=== PATIENT | female | born 1960 | race Caucasian/White ===

== ENCOUNTER 2020-02-12 17:09 | Outpatient (CLI) | payer MEDICARE, MEDICAID, SELFPAY ==
[2020-02-12 17:59] LABS: Hemoglobin A1C 5.9 % (<5.7)
[2020-02-12 18:26] LABS: Thyroid Stimulating Hormone 0.287 uIU/mL (0.465-4.680)
[2020-02-12 18:32] LABS: Free T4 Free Thyroxine 1.04 ng/mL (0.78-2.19)
== END 2020-02-12 17:10 | disposition home or self-care (01) ==
PROVIDERS: PCP Family Medicine; Visit Provider Internal Medicine Endocrinology, Diabetes & Metabolism
DX: E03.9 Hypothyroidism, unspecified (principal); E11.65 Type 2 diabetes mellitus with hyperglycemia; R73.03 Prediabetes; R79.89 Other specified abnormal findings of blood chemistry
CPT/HCPCS: 36415; 83036; 84439; 84443

== ENCOUNTER 2020-02-23 11:47 | Outpatient (CLI) | payer MEDICARE, MEDICAID, SELFPAY ==
--- NOTE | ~2020-02-23 | MMUS_ITS ---
EXAMINATION: MM diagnostic mary BI w oc, US breast LT limited HISTORY: Tenderness in the upper outer quadrant of the left breast TECHNIQUE: Craniocaudal, mediolateral, and mediolateral oblique 3-D tomosynthesis images of the galilea ts were performed and synthetic 2-D images were generated. CAD analysis was submitted and interpreted . High resolution limited left breast ultrasound was performed. COMPARISON: 04/25/2019, 11/18/2017 BREAST PARENCHYMAL COMPOSITION: There are scattered areas of fibroglandular density. FINDINGS: MAMMOGRAPHIC FINDINGS: There is no evidence of suspicious mass, calcification, or architectural distortion to suggest yola hutchinson. There has been no suspicious interval change. No mammographic correlate is identified for the patient's reported left breast pain ULTRASOUND: There is no evidence of focal abnormal solid or cystic lesion in the vicinity of the patient's report ed left breast pain. Areas of dense fibroglandular tissue are noted. IMPRESSION: 1. No specific mammographic or sonographic correlate is identified for the patient's reported left br east pain Further evaluation at this time should be based on clinical assessment. Continued follow-up physical examination is recommended. 2. Recommend routine screening mammography in one year. BI-RADS Category 1: Negative Reviewed, dictated and finalized at location A. IMPRESSION: 1. No specific mammographic or sonographic correlate is identified for the katja ent's reported left breast pain Further evaluation at this time should be based on clinical assessment. Continued follow-up physical examination is recommende d. 2. Recommend routine screening mammography in one year. BI-RADS Category 1: Negative
== END 2020-02-23 11:48 | disposition home or self-care (01) ==
LOC: ANHIMG 11:56
PROVIDERS: PCP Family Medicine; Visit Provider Obstetrics & Gynecology Gynecology
DX: R92.8 Other abnormal and inconclusive findings on diagnostic imaging of breast (principal)
CPT/HCPCS: 76642; 77062; 77066; G0279

== ENCOUNTER 2020-05-10 16:38 | Outpatient (CLI) | payer MEDICARE, MEDICAID, SELFPAY ==
[2020-05-10 18:46] LABS: Free T4 Free Thyroxine 0.88 ng/mL (0.78-2.19)
[2020-05-16 05:24] LABS: Triiodothyronine T3 Free 2.2 pg/mL (2.3-4.2)
== END 2020-05-10 16:39 | disposition home or self-care (01) ==
LOC: ANHLAB 16:45
PROVIDERS: PCP Family Medicine; Visit Provider Internal Medicine Endocrinology, Diabetes & Metabolism
DX: E03.9 Hypothyroidism, unspecified (principal); E11.9 Type 2 diabetes mellitus without complications; E04.9 Nontoxic goiter, unspecified
CPT/HCPCS: 36415; 84439; 84443; 84481

== ENCOUNTER 2020-05-22 06:52 | Outpatient (NON) | payer MEDICARE, MEDICAID, SELFPAY ==
[2020-05-22 23:09] LABS: SARS-CoV-2 RNA PCR Negative
== END 2020-05-22 06:53 ==
PROVIDERS: PCP Family Medicine; Visit Provider Family Medicine
DX: Z20.828 Contact with and (suspected) exposure to other viral communicable diseases (principal); R05 Cough
CPT/HCPCS: 87635; C9803; U0003

== ENCOUNTER 2020-10-06 16:45 | Emergency (ER) | payer MEDICARE, MEDICAID, SELFPAY ==
--- NOTE | ~2020-10-06 | XR_ITS ---
EXAMINATION: XR abdomen obstructive series EXAM DATE: 10/06/2020 17:57 INDICATION: Abdominal pain, constipation. Symptoms for days. TECHNIQUE: Frontal upright projection of the upper abdomen, frontal projection of the lower abdomen f or interpretation. There is no prior study for comparison. FINDINGS: There is moderate amount of colonic stool and gas. No small bowel dilation, nonobstructiv e bowel gas pattern. Calcifications in the pelvis are believed to be phleboliths. There is no orga nomegaly suspected. The bones are unremarkable. There is no free intraperitoneal air. The lung b ases are clear. IMPRESSION: Moderate amount of colonic stool. Reviewed, dictated and finalized at location A. 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
[2020-10-06 16:50] VITALS: BP 179/109; PULSE 116; RESP 18; TEMP 36.6; O2SAT 98
--- NOTE | 2020-10-06 17:17 | ED.ABDPAIN ---
HPI - Abdominal Pain General Chief Complaint: Abdominal Pain Stated Complaint: constipation, severe pain Time Seen by Provider: 10/06/20 17:03 Source: patient Mode of arrival: ambulatory Limitations: no limitations History of Present Illness HPI narrative: A 60-year-old female [facility] with complaints of constipation and anxiety. Patient has an underlying issue with anxiety. States she was recently started on Celexa, took it for approximately 30 days but discontinued it because of side effects. Patient notes most notably right now she has been constipated and unable to have a bowel movement for approximately 4 days. Patient complains of severe pain in her rectum and states that she has tried to go with no success. Related Data Home Medications Medication Instructions Recorded Confirmed cholecalciferol (vitamin D3) 50 2,000 unit PO DAILY 11/09/19 11/09/19 mcg (2,000 unit) tablet duloxetine 60 mg capsule,delayed 60 mg PO DAILY 11/09/19 11/09/19 release multivitamin 1 tablet PO DAILY 11/09/19 11/09/19 magnesium 200 mg tablet 200 mg PO DAILY 02/15/20 turmeric 400 mg capsule mg PO 02/15/20 Allergies Allergy/AdvReac Type Severity Reaction Status Date / Time No Known Allergies Allergy Unverified 10/06/20 16:53 Review of Systems Review of Systems: Narrative: CONSTITUTIONAL: Denies fever, chills, or sweats. EYES: Denies visual changes, redness, or discharge. ENT: Denies rhinorrhea, congestion, sore throat, or otalgia. CARDIOVASCULAR: Denies chest pain, palpitations, or edema. RESPIRATORY: Denies cough or dyspnea. GASTROINTESTINAL: Denies abdominal pain, nausea, vomiting, or diarrhea. Endorses constipation GENITOURINARY: Denies dysuria or hematuria. SKIN: Denies rash or itching. MUSCULOSKELETAL: Denies back pain, joint pain, or myalgia. NEUROLOGIC: Denies headache, numbness, dizziness, or weakness. PSYCHIATRIC: Denies anxiety or depression. [facility] Past Medical History Medical History (Updated 10/06/20 @ 18:43 by Kobe Casanova DO) Anxiety Depression Osteoporosis Thyroid disease Family History Family History Father Diabetes mellitus Depression Malignant neoplasm of prostate Acute myocardial infarction Family history of ulcerative colitis Mother Family history of pancreatic cancer Other Family history of chronic obstructive pulmonary disease Family history of gastrointestinal disorder Family history of primary malignant neoplasm of liver Social History Social History Smoking status: Never smoker Alcohol intake: current Gender identity (if verbalized by the patient): Female Exam Narrative: Exam Narrative: GENERAL: Well-appearing, well-nourished, who appears tearful and anxious. HEAD: Normocephalic, atraumatic. EYES: PERRLA and EOMI. ENT: Nares clear, no rhinorrhea or epistaxis. Mucous membranes moist. NECK: Supple. No adenopathy or masses. No carotid bruits or JVD CHEST: Clear to auscultation. No respiratory distress. No wheezes rales or rhonchi HEART: Regular rate and rhythm. No murmur heard. Normal peripheral pulses. ABDOMEN: Soft, nontender, nondistended, normal active bowel sounds. EXTREMITIES: Normal range of motion. No edema. SKIN: Warm, dry, no rash. NEURO: No focal deficits. Alert and oriented x3. PSYCH: Tearful and anxious. Course Reevaluation(s) Reevaluation #1: Patient unfortunately did not tolerate the enema very well. This did however as she put it get things moving . Patient was able to have a bowel movement in the room that was small. She later went to the bathroom and had another bowel movement. Patient will be discharged home with a prescription for cathartics to continue taking to alleviate the issue. Time: 18:39 Vital Signs Vital signs: Vital Signs Temperature 36.6 C 10/06/20 16:50 Pulse Rate 116 H
[2020-10-06] MEDS: LORazepam INJ (*CRX) 2 MG/ML VIAL 1 MG IV PUSH (17:33)
[2020-10-06] MEDS: MAGNESIUM CITRATE 300 ML BTL PO (17:34)
[2020-10-06 17:40] LABS: Basophils Percent Auto 0.2 % (0.2-1.2); Eosinophils Percent Auto 0.1 % (0-4.4); Hemoglobin 14.1 g/dL (12.0-15.0); Immature Granulocyte Absolute 0.04 K/mm3 (0.00-0.031); Immature Granulocyte Percent A 0.3 % (0-0.5); Lymphocytes Absolute Auto 1.15 K/mm3 (0.9-3.2); Lymphocytes Percent Auto 9.6 % (18.3-44.2); Mean Corpuscular HGB Conc 33.6 g/dl (32-36); Mean Corpuscular Hemoglobin 29.7 pg (26-34); Mean Corpuscular Volume 88.4 fl (80-100); Mean Platelet Volume 11.3 fl (7.4-10.4); Monocytes Absolute Auto 0.6 K/mm3 (0.1-0.6); Neutrophils Absolute Auto 10.2 K/mm3 (1.3-6.7); Neutrophils Percent Auto 84.8 % (45.5-73.1); Platelet Count Result 205 k/mm3 (150-375); Red Blood Count 4.75 M/mm3 (4.2-5.4)
[2020-10-06 17:53] LABS: Anion Gap 6 mmol/L (8-16); Blood Urea Nitrogen 16 mg/dL (7-17); Calcium 9.3 mg/dL (8.4-10.2); Carbon Dioxide 28 mmol/L (22-30); Chloride 102 mmol/L (98-107); Estimated CRCL calculation 62 ml/min; Estimated Glomerular Filt Rate > 60; Glucose 120 mg/dL (65-105); Potassium 3.7 mmol/L (3.4-5.0); Sodium 136 mmol/L (137-145)
[2020-10-06 18:55] VITALS: BP 156/100; PULSE 85; RESP 18; O2SAT 99
--- NOTE | 2020-10-06 18:55 | PC.NURSE ---
lg bowel movement after mag citrate and soap suds enema. abd discomfort improved. anxiety continues.
== END 2020-10-06 19:07 | disposition home or self-care (01) ==
PROVIDERS: Emergency Provider Emergency Medicine; PCP Family Medicine
DX: K59.01 Slow transit constipation (principal); F41.9 Anxiety disorder, unspecified; F32.9 Major depressive disorder, single episode, unspecified; M81.0 Age-related osteoporosis without current pathological fracture; E07.9 Disorder of thyroid, unspecified
CPT/HCPCS: 36415; 74019; 80048; 85025; 96374; 99284; A9270; J2060

== ENCOUNTER 2020-10-29 14:22 | Emergency (ER) | payer MEDICARE, MEDICAID, SELFPAY ==
--- NOTE | ~2020-10-29 | XR_ITS ---
EXAMINATION: XR chest 2V EXAM DATE: 10/29/2020 15:23 INDICATION: Cough. TECHNIQUE: Frontal and lateral projections of the chest obtained and reviewed. Comparison is made to prior examination from 11/03/2017. FINDINGS: The lungs are clear. There are no pleural effusions. The cardiomediastinal silhouette is within normal limits. There is no pneumothorax suspected. The bones and soft tissues are unremarkab le. IMPRESSION: Normal chest x-ray exam. Reviewed, dictated and finalized at location A. IMPRESSION: Normal chest x-ray exam.
[2020-10-29 14:24] VITALS: PULSE 78; RESP 16; TEMP 36.3; O2SAT 99
--- NOTE | 2020-10-29 14:27 | ECG_ITS ---
Measurements Intervals [place] Rate: 78 P: 58 ID: 150 QRS: 65 QRSD: 94 T: 57 QT: 381 QTc: 435 Interpretive Statements SINUS RHYTHM POSSIBLE LEFT ATRIAL ENLARGEMENT BASELINE ARTIFACT- I, II, III, AVR, AVL, AVF, V3 BORDERLINE ECG Electronically Signed On 10-29-2020 16:38:06 CDT by Paul Diego D.O.
[2020-10-29 14:43] LABS: Basophils Percent Auto 0.3 % (0.2-1.2); Eosinophils Percent Auto 0.3 % (0-4.4); Hematocrit 43.9 % (37.0-47.0); Hemoglobin 14.8 g/dL (12.0-15.0); Immature Granulocyte Absolute 0.03 K/mm3 (0.00-0.031); Immature Granulocyte Percent A 0.4 % (0-0.5); Lymphocytes Absolute Auto 1.26 K/mm3 (0.9-3.2); Mean Corpuscular HGB Conc 33.7 g/dl (32-36); Mean Corpuscular Hemoglobin 30.6 pg (26-34); Mean Corpuscular Volume 90.9 fl (80-100); Mean Platelet Volume 10.8 fl (7.4-10.4); Monocytes Absolute Auto 0.4 K/mm3 (0.1-0.6); Monocytes Percent Auto 5.6 % (2.6-8.5); Neutrophils Absolute Auto 6.1 K/mm3 (1.3-6.7); Neutrophils Percent Auto 77.4 % (45.5-73.1); Platelet Count Result 217 k/mm3 (150-375); Red Blood Count 4.83 M/mm3 (4.2-5.4); White Blood Count 7.9 K/mm3 (4.5-10.0)
[2020-10-29 15:19] LABS: Add Urine Microscopic? YES; Appearance Urine Cloudy (Clear); Bacteria Urine Trace /hpf; Bilirubin Urine Negative (Negative); Blood Urine Negative (Negative); Calcium Oxalate Crystals Urine Many /hpf; Color Urine Amber (Yellow); Glucose Urine UA Negative (Negative); Ketones Urine Negative (Negative); Leukocyte Esterase Ur Negative LEU/UL (Negative); Mucus Urine Heavy /lpf; Nitrate Urine Negative (Negative); Protein Urine 1+ mg/dL (Negative); Specific Grav Ur 1.025 (1.001-1.035); Squamous Epithelial Cell Urine Many /hpf (Few); Urobilinogen Urine Negative mg/dL (<2.0); WBC Urine 0-3 /hpf
[2020-10-29 16:04] LABS: Alanine Aminotransferase 22 U/L (4-35); Albumin Level 4.6 g/dL (3.5-5.1); Alkaline Phosphatase 43 U/L (38-126); Anion Gap 9 mmol/L (8-16); Aspartate Amino Transferase 27 U/L (14-36); Bilirubin,Total 0.4 mg/dL (0.2-1.3); Blood Urea Nitrogen 17 mg/dL (7-17); Calcium 9.6 mg/dL (8.4-10.2); Carbon Dioxide 27 mmol/L (22-30); Chloride 103 mmol/L (98-107); Estimated CRCL calculation 56 ml/min; Estimated Glomerular Filt Rate 57; Glucose 121 mg/dL (65-105); Sodium 139 mmol/L (137-145)
--- NOTE | 2020-10-29 17:04 | ED.GENADULT ---
HPI - General Adult General Chief complaint: Weakness Stated complaint: fatigue, nausea, dizziness Time Seen by Provider: 10/29/20 16:18 Source: patient Mode of arrival: ambulatory Limitations: no limitations History of Present Illness HPI narrative: 60-year-old with a history of depression, hypothyroidism here with complaints of marked weakness for last several weeks. She states that she has no energy, her sleep is also disturbed she sleeps only for few hours a day, she states that she has occasional heartburn. She denies any fever or chills. She states that food makes her nauseated. Patient states that she was supposed to be on Cymbalta 60 mg but she only takes 20 mg a day. Patient states that none of the antidepressants are working on her. She denies being suicidal or homicidal. Onset (ago): month(s) Radiation: non-radiation Severity: moderate Treatments prior to arrival: none Related Data Home Medications Medication Instructions Recorded Confirmed cholecalciferol (vitamin D3) 50 2,000 unit PO DAILY 11/09/19 11/09/19 mcg (2,000 unit) tablet duloxetine 60 mg capsule,delayed 60 mg PO DAILY 11/09/19 11/09/19 release multivitamin 1 tablet PO DAILY 11/09/19 11/09/19 magnesium 200 mg tablet 200 mg PO DAILY 02/15/20 turmeric 400 mg capsule mg PO 02/15/20 Allergies Allergy/AdvReac Type Severity Reaction Status Date / Time No Known Allergies Allergy Verified 10/29/20 16:28 Review of Systems Review of Systems: All systems reviewed & are unremarkable except as noted in HPI and below Constitutional: Constitutional: Reports difficulty sleeping, Reports fatigue, Reports lethargy and Reports poor appetite Eyes: Eyes: Reports no additional eye complaints ENT: Reports system reviewed and no additional complaints, except as documented Cardiovascular: Cardiovascular: Reports chest pain Respiratory: Respiratory: Reports no additional respiratory complaints Gastrointestinal: Gastrointestinal: Reports abdominal pain Musculoskeletal: Musculoskeletal: Reports no additional musculoskeletal complaints Neurologic: Reports system reviewed and no additional complaints, except as documented Psychiatric: Psychiatric: Reports abnormal sleep pattern, Reports change in appetite and Reports depression Endocrine: Endocrine: Reports no additional endocrine complaints PMFSH Past Medical History Medical History Anxiety Depression Osteoporosis Thyroid disease Family History Family History Father Diabetes mellitus Depression Malignant neoplasm of prostate Acute myocardial infarction Family history of ulcerative colitis Mother Family history of pancreatic cancer Other Family history of chronic obstructive pulmonary disease Family history of gastrointestinal disorder Family history of primary malignant neoplasm of liver Social History Social History Smoking status: Never smoker Alcohol intake: current Gender identity (if verbalized by the patient): Female Exam Narrative: Exam Narrative: GENERAL: Well-appearing, well-nourished, and in no acute distress. HEAD: Normocephalic, atraumatic. EYES: PERRLA and EOMI ,tearful. NECK: Supple. CHEST: Clear to auscultation. No respiratory distress. HEART: Regular rate and rhythm. No murmur heard. Normal peripheral pulses. ABDOMEN: Soft, nontender, nondistended, normal active bowel sounds. EXTREMITIES: Normal range of motion. No edema. SKIN: Warm, dry, no rash. NEURO: No focal deficits. Alert and oriented x3. PSYCH: Depressed mood , Course Course Emergency Course: Patient was supposed to be on antidepressant patient states that she has not taken medications regularly she states that she was put on Cymbalta 60 mg however she she states that she is trying to taper her own medications of she thinks one of
[2020-10-29 18:09] LABS: Potassium 3.9 mmol/L (3.4-5.0)
== END 2020-10-29 17:39 | disposition home or self-care (01) ==
LOC: ANHED 17:10
PROVIDERS: Emergency Medicine; Emergency Provider Family Medicine; PCP Family Medicine
DX: R53.1 Weakness (principal); F34.1 Dysthymic disorder; E03.9 Hypothyroidism, unspecified; M81.0 Age-related osteoporosis without current pathological fracture; E07.9 Disorder of thyroid, unspecified; F41.9 Anxiety disorder, unspecified; F32.9 Major depressive disorder, single episode, unspecified; R94.31 Abnormal electrocardiogram [ECG] [EKG]
CPT/HCPCS: 36415; 71046; 80053; 81001; 85025; 93005; 99283

== ENCOUNTER 2020-12-02 12:59 | Outpatient (CLI) | payer MEDICARE, MEDICAID, SELFPAY ==
--- NOTE | ~2020-12-02 | CT_ITS ---
EXAMINATION: CT abdomen wo/w con DATE: 12/02/2020 13:47 INDICATION: Adrenal gland disorder. Abnormal cortisol. TECHNIQUE: Computed tomography (CT) of the abdomen was performed without and with 100 mL Omnipaque 35 0 intravenous contrast. Automated exposure control and iterative reconstruction technique were employ ed. The dose-length product was 643.08 mGy-cm. COMPARISON: None. FINDINGS: The visualized portions of the lung bases demonstrate minimal atelectasis. No pleural effus ion. The heart size is normal. No pericardial effusion. The liver, gallbladder, spleen, pancreas, adr enal glands, and right kidney are normal. There is an 8 mm cyst in left kidney. There are no dilated loops of bowel. There are no pathologically enlarged lymph nodes. There is no free intraperitoneal fl uid. There is severe lower lumbar spondylosis. There is a benign bone island in T12. IMPRESSION: 1. Normal adrenal glands. Reviewed, dictated and finalized at location B. IMPRESSION: 1. Normal adrenal glands.
[2020-12-02 13:37] LABS: Estimated Glomerular Filt Rate 51
== END 2020-12-02 13:00 | disposition home or self-care (01) ==
PROVIDERS: PCP Family Medicine; Visit Provider Internal Medicine Endocrinology, Diabetes & Metabolism
DX: E27.9 Disorder of adrenal gland, unspecified (principal); M47.816 Spondylosis without myelopathy or radiculopathy, lumbar region
CPT/HCPCS: 74170; Q9967

== ENCOUNTER 2020-12-23 16:35 | Outpatient (CLI) | payer MEDICARE, MEDICAID, SELFPAY ==
--- NOTE | ~2020-12-23 | MR_ITS ---
EXAMINATION: MR pituitary wo/w con EXAM DATE: 12/23/2020 18:10 INDICATION: Pituitary Function Test Abnormal, High Cortisol. TECHNIQUE: Magnetic resonance imaging (MRI) of the brain/brain stem obtained without contrast. Sagit ted T1, axial diffusion, gradient echo (T2*), T1, T2, FLAIR sequences obtained. Patient was then inj ected with intravenous Multihance contrast. Quantity of contrast not available at this time, an adden dum can be added. A pituitary protocol was utilized including dynamic imaging through the pituitary g land during intravenous injection of contrast. Whole brain postcontrast axial and coronal sequences. Correlation was made with head CT 10/27/2018. FINDINGS: The pituitary gland is mildly bulging in the cephalad direction out of the sella turcica, measures 7 millimeters in craniocaudal dimension versus about [address] 2019. Still does not to uch the optic chiasm. There is 3.5 mm region identified on the sagittal postcontrast sequence which e nhances less than the other portions of the pituitary gland, could be a pituitary microadenoma. This has been indicated on sequence 9 image 13. There are no areas of restricted diffusion to suggest acute infarction. There is no acute hemorrhage seen on the T2*, a hemosiderin sensitive sequence. No intraparenchymal brain mass. The ventricles a re normal in size. There are no extra-axial collections. Flow voids are seen in the cerebral arteri es on the T2-weighted sequences consistent with their expected patency. The orbits are unremarkable. Soft tissue is unremarkable. IMPRESSION: Mild interval increase in volume of the pituitary gland with possible identification of 3 .5 mm. microadenoma. Reviewed, dictated and finalized at location A. IMPRESSION: Mild interval increase in volume of the pituitary gland with possib le identification of 3.5 mm. microadenoma.
== END 2020-12-23 16:36 | disposition home or self-care (01) ==
PROVIDERS: PCP Family Medicine; Visit Provider Internal Medicine Endocrinology, Diabetes & Metabolism
DX: R94.7 Abnormal results of other endocrine function studies (principal)
CPT/HCPCS: 70553; A9577

== ENCOUNTER 2021-03-03 14:15 | Outpatient (NON) | payer MEDICARE, MEDICAID, SELFPAY ==
[2021-03-06 18:31] LABS: Calculated Total (E+NE) 35 mcg/24 h (26-121); Dopamine, 24hr Urine 222 mcg/24 h (52-480); Epinephrine, 24hr Urine 7 mcg/24 h (2-24); Norepinephrine, 24hr Urine 28 mcg/24 h (15-100)
[2021-03-07 12:38] LABS: Metanephrine, Total Urine 365 mcg/24 h (224-832); Metanephrine, Urine 99 mcg/24 h (90-315); Normetanephrine, Urine 266 mcg/24 h (122-676)
== END 2021-03-03 14:16 | disposition home or self-care (01) ==
PROVIDERS: PCP Family Medicine; Visit Provider Internal Medicine Endocrinology, Diabetes & Metabolism
DX: D35.2 Benign neoplasm of pituitary gland (principal); F41.9 Anxiety disorder, unspecified; I10 Essential (primary) hypertension
CPT/HCPCS: 36415; 82175; 82384; 83655; 83825; 83835

== ENCOUNTER 2021-03-11 07:01 | Outpatient (CLI) | payer MEDICARE, MEDICAID, SELFPAY ==
[2021-03-17 11:29] LABS: Metanephrine, Total Urine 413 mcg/24 h (224-832); Metanephrine, Urine 106 mcg/24 h (90-315); Normetanephrine, Urine 307 mcg/24 h (122-676)
[2021-03-17 16:42] LABS: Calculated Total (E+NE) 35 mcg/24 h (26-121); Dopamine, 24hr Urine 233 mcg/24 h (52-480); Norepinephrine, 24hr Urine 35 mcg/24 h (15-100)
== END 2021-03-11 14:04 | disposition home or self-care (01) ==
LOC: ANHLAB 03-19 07:01
PROVIDERS: PCP Family Medicine; Visit Provider Internal Medicine Endocrinology, Diabetes & Metabolism
DX: D35.2 Benign neoplasm of pituitary gland (principal); F41.9 Anxiety disorder, unspecified
CPT/HCPCS: 82384; 83835

== ENCOUNTER 2021-06-18 18:07 | Emergency (ER) | payer MEDICARE, MEDICAID, SELFPAY ==
[2021-06-18 18:17] VITALS: BP 127/76; PULSE 94; RESP 16; TEMP 36.9; O2SAT 99
--- NOTE | 2021-06-18 18:28 | ED.URI ---
HPI - URI/Sore Throat General Chief Complaint: Upper Respiratory Infection Stated Complaint: sinus infection Time Seen by Provider: 06/18/21 18:32 Source: patient and RN notes reviewed Mode of arrival: ambulatory Limitations: no limitations History of Present Illness HPI Narrative: Sofiya is a 60-year-old female who ambulated into the [facility]. Patient has a 1 month history of sinus congestion and jaw pain. Patient did see her dentist and was given a prescription for amoxicillin that she took for 1 week and had it removed. The bilateral ear pain sneezing and sinus congestion has continued. Patient states she did get better for about 3 days and then the symptoms continued. Patient states she has to sleep sitting up due to the congestion. Patient complains of postnasal drainage which denies any cough. Patient has been using saline nasal spray and a [place] pot. Patient does not use any [id number] cold medicines due to her severe anxiety. Related Data Home Medications Medication Instructions Recorded Confirmed cholecalciferol (vitamin D3) 50 2,000 unit PO DAILY 11/09/19 11/09/19 mcg (2,000 unit) tablet duloxetine 60 mg capsule,delayed 60 mg PO DAILY 11/09/19 11/09/19 release magnesium 200 mg tablet 200 mg PO DAILY 02/15/20 turmeric 400 mg capsule mg PO 02/15/20 folic acid 06/18/21 Allergies Allergy/AdvReac Type Severity Reaction Status Date / Time No Known Allergies Allergy Verified 06/18/21 18:28 Review of Systems Review of Systems: CONSTITUTIONAL: Denies body aches, fever, chills, or sweats. EYES: Denies visual changes, redness, or discharge. ENT: Denies rhinorrhea,+ congestion, +sore throat, +otalgia. CARDIOVASCULAR: Denies chest pain, palpitations, or edema. RESPIRATORY: Denies cough or dyspnea. GASTROINTESTINAL: Denies abdominal pain, nausea, vomiting, or diarrhea. GENITOURINARY: Denies dysuria or hematuria. SKIN: Denies rash, itching, or wounds. MUSCULOSKELETAL: Denies back pain, joint pain, or myalgia. NEUROLOGIC: Denies headache, numbness, tingling, or weakness. PSYCH: Denies depression or anxiety. All systems reviewed & are unremarkable except as noted in HPI and below PMFSH Past Medical History Medical History Anxiety Depression Osteoporosis Thyroid disease Family History Family History Father Diabetes mellitus Depression Malignant neoplasm of prostate Acute myocardial infarction Family history of ulcerative colitis Mother Family history of pancreatic cancer Other Family history of chronic obstructive pulmonary disease Family history of gastrointestinal disorder Family history of primary malignant neoplasm of liver Social History Social History Smoking status: Never smoker Alcohol intake: current Gender identity (if verbalized by the patient): Female Comments At time of signature, I have reviewed and agree with nursing past medical, surgical, social and family history unless otherwise noted. Please see nursing chart for further information. There is no relevant family history pertinent to the presenting complaint Exam Narrative: GENERAL: Well-appearing, well-nourished, and in no acute distress. HEAD: Normocephalic, atraumatic. EYES: EOMI. No redness or drainage. Conjunctivae normal. ENT: Mucous membranes pink and moist. Nasal passages erythematous with clear rhinorrhea. Bilateral TMs are opaque with mild bulging; no erythema. Posterior pharynx is erythemic without exudate with minimal edema and clear postnasal drainage noted. Uvula midline. NECK: Normal AROM. Supple. No lymphadenopathy. CHEST: No respiratory distress. Clear to auscultation. MUSCULOSKELETAL: No bony tenderness. EXTREMITIES: Normal range of motion. No edema. SKIN: Warm, dry, no rash. Capillary refill normal. Normal ski
== END 2021-06-18 18:42 | disposition home or self-care (01) ==
PROVIDERS: Emergency Provider Nurse Practitioner Family; PCP Family Medicine
DX: J01.00 Acute maxillary sinusitis, unspecified (principal); M81.0 Age-related osteoporosis without current pathological fracture; E07.9 Disorder of thyroid, unspecified; F32.A Depression, unspecified
CPT/HCPCS: 99213; G0463

== ENCOUNTER → 2021-08-27 02:48 | Outpatient (CLI) | payer MEDICARE, MEDICAID, SELFPAY ==
[2021-08-27 21:18] LABS: SARS-CoV-2 RNA PCR Negative
== END ==
PROVIDERS: PCP Family Medicine; Visit Provider Family Medicine
DX: J01.90 Acute sinusitis, unspecified (principal); Z20.822 Contact with and (suspected) exposure to COVID-19
CPT/HCPCS: C9803; U0003; U0005

== ENCOUNTER 2021-10-09 14:57 | Outpatient (CLI) | payer MEDICARE, MEDICAID, SELFPAY ==
[2021-10-09 17:01] LABS: Alanine Aminotransferase 24 U/L (4-35); Albumin Level 4.8 g/dL (3.5-5.1); Alkaline Phosphatase 51 U/L (38-126); Anion Gap 8 mmol/L (8-16); Aspartate Amino Transferase 32 U/L (14-36); Bilirubin,Total 0.5 mg/dL (0.2-1.3); Blood Urea Nitrogen 17 mg/dL (7-17); Calcium 9.7 mg/dL (8.4-10.2); Carbon Dioxide 26 mmol/L (22-30); Chloride 103 mmol/L (98-107); Estimated Glomerular Filt Rate 57; Glucose 123 mg/dL (65-110); Potassium 4.3 mmol/L (3.4-5.0); Sodium 137 mmol/L (137-145)
[2021-10-09 17:19] LABS: Free T4 Free Thyroxine 1.42 ng/mL (0.78-2.19)
[2021-10-09 17:32] LABS: Thyroid Stimulating Hormone 0.434 uIU/mL (0.465-4.680)
[2021-10-09 18:08] LABS: Folic Acid > 20.0 ng/mL (2.76->20)
[2021-10-14 05:33] LABS: Thyroid Peroxidase Antibodies 124 IU/mL (<9)
[2021-10-14 12:47] LABS: Adrenocorticotropic Hormone 11 pg/mL (6-50)
[2021-10-15 07:02] LABS: Triiodothyronine T3 Free 2.8 pg/mL (2.3-4.2)
[2021-10-15 10:55] LABS: Collection Sample VENOUS
== END 2021-10-09 14:58 | disposition home or self-care (01) ==
LOC: ANHLAB 15:09
PROVIDERS: PCP Family Medicine; Visit Provider Internal Medicine Endocrinology, Diabetes & Metabolism
DX: E06.3 Autoimmune thyroiditis (principal); D35.2 Benign neoplasm of pituitary gland; G25.71 Drug induced akathisia
CPT/HCPCS: 36415; 80053; 82024; 82525; 82607; 82746; 83655; 84146; 84439; 84443; 84481; 86376

== ENCOUNTER 2021-10-13 14:55 | Outpatient (CLI) | payer MEDICARE, MEDICAID, SELFPAY ==
--- NOTE | ~2021-10-13 | XR_ITS ---
XR wrist LT min 3V DATE: 10/13/2021 15:18 INDICATION: Fall 10 days ago. Posterior wrist pain radiating up arm. TECHNIQUE: 4 views COMPARISON: None FINDINGS: There is mild osteoarthritis at the first carpometacarpal joint. No fracture, dislocation, periosteal reaction or bone destruction is detected. IMPRESSION: No fracture or dislocation Reviewed, dictated and finalized at location A. ER PLANNER IMPRESSION: No fracture or dislocation
--- NOTE | ~2021-10-13 | XR_ITS ---
XR forearm LT 2V DATE: 10/13/2021 15:18 INDICATION: Fall 2010 days ago. Posterior wrist pain radiating up arm TECHNIQUE: October 13, 2021 view left wrist COMPARISON: None FINDINGS: No fracture or dislocation, periosteal reaction or bone destruction. Normal alignment at th e elbow and wrist joints. IMPRESSION: No fracture or dislocation Reviewed, dictated and finalized at location A. SWARE MAKER IMPRESSION: No fracture or dislocation
== END 2021-10-13 14:56 | disposition home or self-care (01) ==
LOC: ANHIMG 15:00
PROVIDERS: PCP Family Medicine; Visit Provider Family Medicine
DX: M25.532 Pain in left wrist (principal); W19.XXXA Unspecified fall, initial encounter
CPT/HCPCS: 73090; 73110

== ENCOUNTER 2021-11-10 15:30 | Outpatient (CLI) | payer MEDICARE, MEDICAID, SELFPAY ==
--- NOTE | ~2021-11-10 | MR_ITS ---
EXAMINATION: MR pituitary wo con DATE: 11/10/2021 16:52 INDICATION: Pituitary adenoma. TECHNIQUE: Magnetic resonance imaging (MRI) of the brain and brainstem was performed without intraven ous contrast. Whole-brain sequences included sagittal T1-weighted FSE, axial diffusion-weighted FS EP I, axial T2*-weighted GRE, axial T2-weighted FLAIR Propeller, and axial T2-weighted Propeller. Small [id number] sequences included sagittal and coronal T1-weighted FSE centered at the pituitary. Appa rent diffusion coefficient (ADC) maps were created. COMPARISON: Brain MRI 12/23/2020 FINDINGS: The pituitary is normal in size with height of 8 mm. There is no intracranial hemorrhage, a cute infarction, or abnormal intracranial mass lesion. The ventricles are normal in size. The orbits are normal. There is mild mucosal thickening in the ethmoid sinuses. The mastoid air cells are normal . IMPRESSION: 1. Normal brain. Sensitivity for pituitary microadenoma is decreased by the lack of intravenous contr ast. Reviewed, dictated and finalized at location A. IMPRESSION: 1. Normal brain. Sensitivity for pituitary microadenoma is decreased by the lac k of intravenous contrast.
[2021-11-10 16:28] LABS: Estimated Glomerular Filt Rate 57
== END 2021-11-10 15:31 | disposition home or self-care (01) ==
LOC: ANHIMG 15:37
PROVIDERS: PCP Family Medicine; Visit Provider Internal Medicine Endocrinology, Diabetes & Metabolism
DX: D35.2 Benign neoplasm of pituitary gland (principal)
CPT/HCPCS: 70551

== ENCOUNTER → 2021-12-23 15:04 | Outpatient (CLI) | payer MEDICARE, MEDICAID, SELFPAY ==
--- NOTE | ~2021-12-23 | DEXA_ITS ---
Bone Density Report Name: ANNA DAVIS Age: 61 Sex: Female Ethnicity: White Date of : 1960 Indication: postmenopausal; screening for osteoporosis; height loss; prior fracture; Referring Provider: NICK CHAND Study: Bone densitometry was performed. Exam Date: December 23, 2021 Accession number: [id number] Bone Density: Region BMD T-score Z-score Classification AP Spine (L1-L4) 0.945 -0.9 0.5 Normal Femoral Neck (Left) 0.777 -0.6 0.7 Normal Total Hip (Left) 0.937 0.0 0.9 Normal Femoral Neck (Right) 0.816 -0.3 1.0 Normal Total Hip (Right) 0.923 -0.2 0.8 Normal Total Hip Mean 0.930 -0.1 0.9 Normal World Health Organization criteria for BMD impression classify patients as: Normal (T-score at or above -1.0), Osteopenia (T-score between -1.0 and -2.5), or Osteoporosis (T-score at or below -2.5). 10-year Fracture Risk: FRAX not reported because: All T-scores for Spine Total, Hip Total, Femoral Neck at or above -1.0 Treated for osteoporosis Clinical Information Provided by Patient: Has had a low trauma fracture Is being treated for osteoporosis Has used the following medications: HRT (i.e. estrogen/hormone therapy), Vitamin D Patient maximum height was 65.75 Menopause Age: 50 No regular weight bearing exercise Onset of menses at age 17 Number of children 2 Impression: The patient has normal bone mass. The patient has risk factors, including: previous fracture. Discussion: It is important to ask patients whether they are taking their medications and to encourage continued and appropriate compliance with their osteoporosis therapies to reduce fracture risk. It is also important to review their risk factors and encourage appropriate calcium and vitamin D intakes, exercise, fall prevention and other lifestyle measures. Follow-Up: Consider a repeat BMD and Vertebral Fracture Assessment (VFA) exam in 2 years or sooner if medically necessary, to reassess this patient's status. Reported by: JAN on 12/23/2021 3:18:00 PM. Reviewed, dictated and finalized at location A.
== END ==
PROVIDERS: PCP Family Medicine; Visit Provider Obstetrics & Gynecology Gynecology
DX: Z78.0 Asymptomatic menopausal state (principal)
CPT/HCPCS: 77080

== ENCOUNTER 2021-12-23 15:57 | Emergency (ER) | payer MEDICARE, MEDICAID, SELFPAY ==
--- NOTE | ~2021-12-23 | CT_ITS ---
EXAMINATION: CT abdomen pelvis w con DATE: 12/23/2021 17:56 INDICATION: RLQ pain TECHNIQUE: Computed tomography (CT) of the abdomen and pelvis was performed with 100 mL Omnipaque-300 intravenous contrast. Automated exposure control and iterative reconstruction technique were employe d. The dose-length product was 857.48 mGy-cm. COMPARISON: 12/02/2020. FINDINGS: Lower thorax: Mild coronary artery calcification. Liver: Normal. Biliary/Gallbladder: Gallbladder is normal. No bile duct dilation. Spleen: Normal. Pancreas: No mass or duct dilation. Adrenals:No mass. Kidneys: Multiple subcentimeter bilateral hypodensities too small to characterize but most likely rep resent cysts. Renal scarring. GI tract: No small or large bowel dilation. Normal appendix. Diverticulosis. Short segment wall thick ening with surrounding inflammatory change and fluid in the distal sigmoid as it enters the left pelv is. Mesentery/Peritoneum: No ascites, mass, or free air. Retroperitoneum: No mass.. Pelvis: Pelvic organs are within normal limits. Soft Tissues: Soft tissues and body wall unremarkable. Bones: No acute osseous finding. IMPRESSION: Acute, uncomplicated distal sigmoid diverticulitis. Reviewed, dictated and finalized at location K.
[2021-12-23 15:59] VITALS: BP 140/88; PULSE 83; RESP 16; TEMP 36.8; O2SAT 100
[2021-12-23 16:26] LABS: Alanine Aminotransferase 17 U/L (6-35); Albumin Level 4.8 g/dL (3.5-5.1); Alkaline Phosphatase 51 U/L (38-126); Anion Gap 8 mmol/L (8-16); Aspartate Amino Transferase 24 U/L (14-36); Bilirubin,Total 0.7 mg/dL (0.2-1.3); Blood Urea Nitrogen 12 mg/dL (7-17); Calcium 9.4 mg/dL (8.4-10.2); Carbon Dioxide 26 mmol/L (22-30); Chloride 102 mmol/L (98-107); Estimated CRCL calculation 50 ml/min; Estimated Glomerular Filt Rate 51; Glucose 106 mg/dL (65-110); Lipase 74 U/L (23-300); Potassium 4.2 mmol/L (3.4-5.0); Sodium 136 mmol/L (137-145)
[2021-12-23 16:27] LABS: Basophils Percent Auto 0.2 % (0.2-1.2); Eosinophils Percent Auto 0.1 % (0-4.4); Hematocrit 40.6 % (37.0-47.0); Hemoglobin 13.7 g/dL (12.0-15.0); Immature Granulocyte Absolute 0.05 K/mm3 (0.00-0.031); Immature Granulocyte Percent A 0.5 % (0-0.5); Lymphocytes Absolute Auto 1.54 K/mm3 (0.9-3.2); Lymphocytes Percent Auto 13.9 % (18.3-44.2); Mean Corpuscular HGB Conc 33.7 g/dl (32-36); Mean Platelet Volume 10.9 fl (7.4-10.4); Monocytes Absolute Auto 0.8 K/mm3 (0.1-0.6); Monocytes Percent Auto 6.9 % (2.6-8.5); Neutrophils Absolute Auto 8.7 K/mm3 (1.3-6.7); Neutrophils Percent Auto 78.4 % (45.5-73.1); Platelet Count Result 197 k/mm3 (150-375); Red Blood Count 4.56 M/mm3 (4.2-5.4); Red Cell Distribution Width 12.9 % (11.5-14.5); White Blood Count 11.1 K/mm3 (4.5-10.0)
[2021-12-23 16:30] LABS: Appearance Urine Clear (Clear); Bilirubin Urine 1+ (Negative); Blood Urine Trace-lysed (Negative); Color Urine Yellow (Yellow); Glucose Urine UA Negative (Negative); Ketones Urine Trace mg/dL (Negative); Leukocyte Esterase Ur Negative LEU/UL (Negative); Nitrate Urine Negative (Negative); Protein Urine 1+ mg/dL (Negative); Urobilinogen Urine 0.2 mg/dL (<2.0)
[2021-12-23 16:37] LABS: Add Urine Microscopic? YES
[2021-12-23 16:48] LABS: Bacteria Urine Trace /hpf; Hyaline Casts Urine 20-29 /lpf; Mucus Urine Heavy /lpf; Squamous Epithelial Cell Urine Many /hpf (Few); WBC Urine 0-3 /hpf
[2021-12-23 17:12] VITALS: BP 126/73; PULSE 79; RESP 20; O2SAT 100
--- NOTE | 2021-12-23 17:47 | ED.ABDPAIN ---
HPI - Abdominal Pain General Chief Complaint: Abdominal Pain Stated Complaint: abd pain Time Seen by Provider: 12/23/21 16:27 History of Present Illness HPI narrative: Patient is a 61-year-old female who presents ER with abdominal pain. Sharp. Goes from epigastrium down into her lower abdomen. Worse in the right lower quadrant. Initially started in her lower abdomen. She also feels it radiate into her anal canal. She has had some small amount of diarrhea. No fevers or chills or sweats. Patient denies any alleviating factors. Symptoms are worse with movement. No history of colitis. She does still have an appendix. No urine burning urination or urinary frequency/urgency. Related Data Home Medications Medication Instructions Recorded Confirmed duloxetine 60 mg capsule,delayed 60 mg PO DAILY 11/09/19 12/02/21 release magnesium 200 mg tablet 200 mg PO DAILY 02/15/20 12/02/21 conj estrogen-medroxyprogesterone 1 tablet PO DAILY 12/02/21 12/02/21 0.3 mg-1.5 mg tablet levothyroxine 112 mcg capsule 112 mcg PO DAILY 12/02/21 12/02/21 propranolol 10 mg tablet 10 mg PO Q12H 12/02/21 12/02/21 turmeric 400 mg capsule 400 mg PO .PRN cap 12/02/21 12/02/21 Allergies Allergy/AdvReac Type Severity Reaction Status Date / Time No Known Allergies Allergy Verified 12/02/21 14:45 Review of Systems Review of Systems: All systems reviewed & are unremarkable except as noted in HPI and below Constitutional: Constitutional: Denies chills, Denies fever(s) and Denies weakness ENT: Denies nasal congestion and Denies sore throat Gastrointestinal: Gastrointestinal: Reports abdominal pain, Reports diarrhea, Denies nausea and Denies vomiting Genitourinary: Genitourinary: Denies nocturia, Denies dysuria and Denies flank pain Neurologic: Denies focal weakness and Denies numbness PMF Past Medical History Medical History (Updated 12/23/21 @ 18:19 by Cesar Stover MD) Anxiety Depression Nausea alone Osteoporosis Thyroid disease Surgical History Surgical History (Updated 12/02/21 @ 16:09 by DANAY Cobb) Previous section Family History Family History Father Diabetes mellitus Depression Malignant neoplasm of prostate Acute myocardial infarction Family history of ulcerative colitis Mother Family history of pancreatic cancer Other Family history of chronic obstructive pulmonary disease Family history of gastrointestinal disorder Family history of primary malignant neoplasm of liver Social History Social History (Updated 12/02/21 @ 14:45 by Angeles Pang [facility]) Smoking status: Never smoker Alcohol intake: current Alcohol use details: social Substance use: never Gender identity (if verbalized by the patient): Female Exam Narrative: GENERAL: Well-appearing, well-nourished, and in no acute distress. HEAD: Normocephalic, atraumatic. EYES: PERRL and EOMI. ENT: Mucous membranes moist. CHEST: Clear to auscultation. No respiratory distress. HEART: Regular rate and rhythm. Normal peripheral pulses. ABDOMEN: Soft, tender palpation bilateral lower quadrants with guarding in the right lower quadrant McBurney's point, nondistended, normal active bowel sounds. EXTREMITIES: Normal range of motion. No edema. SKIN: Warm, dry, no rash. NEURO: Alert and oriented x3. PSYCH: Normal mood and affect. Course Course Emergency Course: Patient informed of results. Discussed treatment plan for home. Discharge. Vital Signs Vital signs: Vital Signs Temperature 98.2 F 12/23/21 15:59 Pulse Rate 83 12/23/21 15:59 Respiratory Rate 16 12/23/21 15:59 Blood Pressure 140/88 12/23/21 15:59 Pulse Oximetry 100 12/23/21 15:59 Temperature 98.2 F 12/23/21 15:59 Pulse Rate 79 12/23/21 17:12 Respiratory Rate 20 12/23/21 17:12 Blood Pressure 126/73 12/23/21 17:12 Pulse Oximetry 100 12/23/21 17:12
[2021-12-23 18:12] VITALS: BP 131/71; PULSE 74; RESP 18; O2SAT 98
[2021-12-23 18:40] VITALS: BP 130/79; PULSE 73; RESP 18; O2SAT 97
== END 2021-12-23 18:41 | disposition home or self-care (01) ==
PROVIDERS: Emergency Provider Emergency Medicine; PCP Family Medicine
DX: K57.32 Diverticulitis of large intestine without perforation or abscess without bleeding (principal); M81.0 Age-related osteoporosis without current pathological fracture; E07.9 Disorder of thyroid, unspecified; F41.9 Anxiety disorder, unspecified; F32.9 Major depressive disorder, single episode, unspecified; F32.A Depression, unspecified
CPT/HCPCS: 36415; 74177; 80053; 81001; 83690; 85025; 99284; Q9967

== ENCOUNTER 2022-01-29 15:45 | Outpatient (CLI) | payer MEDICARE, MEDICAID, SELFPAY ==
--- NOTE | ~2022-01-29 | XR_ITS ---
XR abdomen/kub 1V DATE: 01/29/2022 16:15 INDICATION: Abdominal bloating, gas, pain for one month TECHNIQUE: 2 views COMPARISON: 12/23/2021 CT abdomen pelvis FINDINGS: The lung bases appear clear. Heart size appears normal. The psoas shadows are intact. No visceromegaly is noted. No evidence of bowel obstruction. Severe degenerative disc disease. Prominent spurring at L5-S1. IMPRESSION: Nonspecific abdomen Reviewed, dictated and finalized at Location A. Reviewed, dictated and finalized at location A. IMPRESSION: Nonspecific abdomen
== END 2022-01-29 15:46 | disposition home or self-care (01) ==
LOC: ANHIMG 15:50
PROVIDERS: PCP Family Medicine; Visit Provider Nurse Practitioner
DX: K57.92 Diverticulitis of intestine, part unspecified, without perforation or abscess without bleeding (principal); R10.9 Unspecified abdominal pain; K59.00 Constipation, unspecified; R14.0 Abdominal distension (gaseous); K62.89 Other specified diseases of anus and rectum; R11.0 Nausea
CPT/HCPCS: 74018

== ENCOUNTER 2022-01-30 14:07 | Outpatient (CLI) | payer MEDICARE, MEDICAID, SELFPAY ==
[2022-01-30 14:48] LABS: Hematocrit 41.6 % (37.0-47.0); Hemoglobin 13.8 g/dL (12.0-15.0); Mean Corpuscular HGB Conc 33.2 g/dl (32-36); Mean Corpuscular Hemoglobin 29.7 pg (26-34); Mean Corpuscular Volume 89.5 fl (80-100); Mean Platelet Volume 10.8 fl (7.4-10.4); Platelet Count Result 231 k/mm3 (150-375); Red Blood Count 4.65 M/mm3 (4.2-5.4); Red Cell Distribution Width 12.8 % (11.5-14.5); White Blood Count 7.1 K/mm3 (4.5-10.0)
[2022-01-30 15:04] LABS: Alanine Aminotransferase 18 U/L (6-35); Albumin Level 4.6 g/dL (3.5-5.1); Alkaline Phosphatase 47 U/L (38-126); Anion Gap 5 mmol/L (8-16); Aspartate Amino Transferase 23 U/L (14-36); Bilirubin,Total 0.4 mg/dL (0.2-1.3); Blood Urea Nitrogen 14 mg/dL (7-17); CRP 1.8 mg/dL (<1.0); Calcium 9.1 mg/dL (8.4-10.2); Carbon Dioxide 30 mmol/L (22-30); Chloride 104 mmol/L (98-107); Estimated Glomerular Filt Rate 57; Glucose 115 mg/dL (65-110); Potassium 4.6 mmol/L (3.4-5.0); Sodium 139 mmol/L (137-145)
[2022-01-30 15:21] LABS: Erythrocyte Sedimentation Rate 16 mm/hr (0-20)
[2022-02-08 12:10] LABS: Calprotectin, Stool 142 mcg/g
[2022-02-27 15:09] LABS: Gliadin AB, IgG <1.0 U/mL (<15.0); Reticulin IgA Negative (Negative); TTG IGA AB <1.0 U/mL (<15.0)
== END 2022-01-30 14:08 | disposition home or self-care (01) ==
LOC: ANHLAB 14:10
PROVIDERS: PCP Family Medicine; Visit Provider Nurse Practitioner
DX: K57.92 Diverticulitis of intestine, part unspecified, without perforation or abscess without bleeding (principal); K59.00 Constipation, unspecified; R10.9 Unspecified abdominal pain; R14.0 Abdominal distension (gaseous); K62.89 Other specified diseases of anus and rectum; R11.0 Nausea; F41.9 Anxiety disorder, unspecified
CPT/HCPCS: 36415; 80053; 83516; 83993; 84443; 85027; 85652; 86140; 86255; 87045; 87177; 87209; 87427

== ENCOUNTER 2022-03-13 13:28 | Inpatient (IN) | payer MEDICARE, MEDICAID, SELFPAY ==
--- NOTE | ~2022-03-13 | CT_ITS ---
EXAMINATION: CT abdomen pelvis w con DATE: 03/13/2022 20:14 INDICATION: Lower abdominal pain TECHNIQUE: Computed tomography (CT) of the abdomen and pelvis was performed with 100 cc Omnipaque 300 intravenous contrast. The dose-length product was 923.73 mGy-cm. Automated exposure control and iter ative reconstruction technique were employed. COMPARISON: CT dated 12/23/2021 FINDINGS: Lung bases are unremarkable. Heart size normal. No significant pleural or pericardial effus ion. There is acute sigmoid diverticulitis with small peridiverticular abscess. The liver, spleen, pancreas, adrenal glands and left kidney are unremarkable. There is a small low-de nsity lesion in the right kidney, too small to characterize. Gallbladder is present. No significant v ascular abnormality. No lymphadenopathy. Moderate lumbar spondylosis. IMPRESSION: 1. Acute sigmoid diverticulitis with small peridiverticular abscess measuring 2.8 x 2 x 1.3 cm. Reviewed, dictated and finalized at location A. IMPRESSION: 1. Acute sigmoid diverticulitis with small peridiverticular abscess measuring 2 .8 x 2 x 1.3 cm.
[2022-03-13 13:38] VITALS: BP 121/90; PULSE 75; RESP 16; TEMP 36.5; O2SAT 99
[2022-03-13 13:54] LABS: Basophils Percent Auto 0.3 % (0.2-1.2); Eosinophils Percent Auto 0.5 % (0-4.4); Hematocrit 41.7 % (37.0-47.0); Hemoglobin 13.1 g/dL (12.0-15.0); Immature Granulocyte Absolute 0.04 K/mm3 (0.00-0.031); Immature Granulocyte Percent A 0.5 % (0-0.5); Lymphocytes Absolute Auto 1.53 K/mm3 (0.9-3.2); Lymphocytes Percent Auto 20.3 % (18.3-44.2); Mean Corpuscular HGB Conc 31.4 g/dl (32-36); Mean Corpuscular Hemoglobin 28.8 pg (26-34); Mean Corpuscular Volume 91.6 fl (80-100); Mean Platelet Volume 10.9 fl (7.4-10.4); Monocytes Absolute Auto 0.5 K/mm3 (0.1-0.6); Monocytes Percent Auto 6.5 % (2.6-8.5); Neutrophils Absolute Auto 5.4 K/mm3 (1.3-6.7); Neutrophils Percent Auto 71.9 % (45.5-73.1); Platelet Count Result 190 k/mm3 (150-375); Red Blood Count 4.55 M/mm3 (4.2-5.4); Red Cell Distribution Width 13.4 % (11.5-14.5); White Blood Count 7.5 K/mm3 (4.5-10.0)
[2022-03-13 14:05] LABS: Alanine Aminotransferase 19 U/L (6-35); Albumin Level 4.4 g/dL (3.5-5.1); Alkaline Phosphatase 48 U/L (38-126); Anion Gap 6 mmol/L (8-16); Aspartate Amino Transferase 23 U/L (14-36); Bilirubin,Total 0.3 mg/dL (0.2-1.3); Blood Urea Nitrogen 16 mg/dL (7-17); Calcium 8.7 mg/dL (8.4-10.2); Carbon Dioxide 27 mmol/L (22-30); Chloride 106 mmol/L (98-107); Estimated CRCL calculation 52 ml/min; Estimated Glomerular Filt Rate 51; Glucose 101 mg/dL (65-110); Lipase 152 U/L (23-300); Potassium 4.2 mmol/L (3.4-5.0); Sodium 139 mmol/L (137-145)
[2022-03-13 15:22] LABS: Appearance Urine Clear (Clear); Bilirubin Urine Negative (Negative); Blood Urine Negative (Negative); Color Urine Yellow (Yellow); Glucose Urine UA Negative (Negative); Ketones Urine Negative (Negative); Leukocyte Esterase Ur Negative LEU/UL (Negative); Nitrate Urine Negative (Negative); Protein Urine Negative (Negative); Specific Grav Ur 1.025 (1.001-1.035); Urobilinogen Urine 0.2 mg/dL (<2.0); pH Urine 5.5 (5.0-9.0)
[2022-03-13 15:26] LABS: Add Urine Microscopic? NO
[2022-03-13 20:26] VITALS: BP 131/97
--- NOTE | 2022-03-13 20:26 | ED.GENADULT ---
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 Reports increasing over the last 3 weeks. And diverticulitis 2 months ago and was treated with antibiotics. No fevers or chills or sweats. No diarrhea. Pain is sharp and causes a lot of discomfort going from her scar to her rectum. Has not found any alleviating factors. Was seen by her hris manager who is concerned. PCP ordered transvaginal ultrasound that scheduled for next week. Related Data Home Medications Medication Instructions Recorded Confirmed duloxetine 60 mg capsule,delayed 60 mg PO DAILY 11/09/19 01/29/22 release (Cymbalta) magnesium 200 mg tablet 200 mg PO DAILY 02/15/20 01/29/22 propranolol 10 mg tablet 10 mg PO Q12H 12/02/21 01/29/22 estradiol 12.5 mg implant pellet mg subcut 03/04/22 mirtazapine 7.5 mg tablet 7.5 mg PO DAILY 03/04/22 testosterone 50 mg implant pellet mg implant 03/04/22 liothyronine 5 mcg tablet mcg 03/13/22 Allergies Allergy/AdvReac Type Severity Reaction Status Date / Time No Known Allergies Allergy Verified 03/13/22 13:29 Review of Systems Review of Systems: All systems reviewed & are unremarkable except as noted in HPI and below Constitutional: Constitutional: Denies chills and Denies fever(s) Cardiovascular: Cardiovascular: Denies chest pain, Denies rapid heart rate and Denies radiating jaw, neck or arm pain Respiratory: Respiratory: Denies cough and Denies dyspnea Gastrointestinal: Gastrointestinal: Reports abdominal pain, Denies constipation, Denies diarrhea, Denies nausea and Denies vomiting Genitourinary: Genitourinary: Denies nocturia, Denies dysuria, Reports pelvic pain and Denies flank pain [facility] Past Medical History Medical History Anxiety Bloating Depression Nausea alone Osteoporosis Rectal Pain Thyroid disease Surgical History Surgical History Previous section Family History Family History Father Diabetes mellitus Depression Malignant neoplasm of prostate Acute myocardial infarction Family history of ulcerative colitis Mother Family history of pancreatic cancer Other Family history of chronic obstructive pulmonary disease Family history of gastrointestinal disorder Family history of primary malignant neoplasm of liver Social History Social History Smoking status: Never smoker Alcohol intake: current Alcohol use details: social Substance use: never Gender identity (if verbalized by the patient): Female Exam Narrative: GENERAL: Well-appearing, well-nourished, and in no acute distress. HEAD: Normocephalic, atraumatic. ENT: Mucous membranes moist. CHEST: Clear to auscultation. No respiratory distress. HEART: Regular rate and rhythm. Normal peripheral pulses. ABDOMEN: Soft, nontender, nondistended. EXTREMITIES: Normal range of motion. No edema. SKIN: Warm, dry, no rash. NEURO: Alert and oriented x3. PSYCH: Normal mood and affect. Course Course Emergency Course: Patient informed of results. Admit to hospitalist service. General surgery consulted. Started on Zosyn. Vital Signs Vital signs: Vital Signs Temperature 97.7 F 03/13/22 13:38 Pulse Rate 75 03/13/22 13:38 Respiratory Rate 16 03/13/22 13:38 Blood Pressure 121/90 03/13/22 13:38 Pulse Oximetry 99 03/13/22 13:38 Oxygen Delivery Room Air 03/13/22 13:38 Temperature 97.7 F 03/13/22 13:38 Pulse Rate 75 03/13/22 13:38 Respiratory Rate 16 03/13/22 13:38 Blood Pressure 121/90
[2022-03-13 20:32] VITALS: BP 142/75; PULSE 87; RESP 20; O2SAT 96
--- NOTE | 2022-03-13 20:54 | PM.IMHP ---
H&P: HPI History of Present Illness Date/Time: 03/13/22 20:54 Chief Complaint: ABDOMINAL PAIN Narrative: This is a 61-year-old female with past medical history significant for Ivanna's thyroiditis, depression, diverticulosis, recent diverticulitis, treated and sent home. Patient comes back today due to abdominal pain in the hypogastric area with radiation bilaterally down her inner thighs, denies any fevers, rigors, chills, night sweats, has had loose stools with no phlegm or blood in it no pain or burning with urination, her appetite has been good in spite of all these, no cough, no sputum production, pain was said nagging dull achy pain she rates at 7/10 at the time of my visit. preliminary workup was significant for CT of abdomen and pelvis Acute sigmoid diverticulitis with small peridiverticular abscess measuring 2.8 x 2 x 1.3 cm. according to patient this has been going on for the last 2 weeks or so. Patient has been admitted for further evaluation management and treatment. Review of Systems Review of Systems: Abdominal pain, rectal pain. Constitutional: Constitutional: Denies chills, Denies fatigue, Denies fever(s), Denies malaise and Denies night sweats Eyes: Eyes: Denies change in vision ENT: Denies dysphagia, Denies vertigo, Denies dizziness and Denies odynophagia Cardiovascular: Cardiovascular: Denies chest pain, Denies irregular heart rhythm, Denies lightheadedness, Denies palpitations and Denies dyspnea on exertion Respiratory: Respiratory: Denies chest congestion, Denies cough and Denies excessive phlegm production Gastrointestinal: Gastrointestinal: Reports abdominal pain, Denies melena, Denies hematochezia, Reports change in stool character, Denies dyspepsia, Denies heartburn, Denies diarrhea, Reports loose stools, Denies nausea and Denies vomiting Genitourinary: Genitourinary: Denies dysuria and Reports pelvic pain Musculoskeletal: Musculoskeletal: Denies back pain and Denies joint swelling Integumentary/Breasts: Skin/Breast: Denies rash Neurologic: Denies vertigo, Denies dizziness, Denies focal weakness and Denies Sensory deficit (Neuro) Psychiatric: Psychiatric: Reports no additional psychiatric complaints and Reports as per HPI Endocrine: Endocrine: Denies cold intolerance, Denies fatigue, Denies flushing, Denies heat intolerance, Denies polyphagia, Denies polydipsia and Denies palpitations Hematologic/Lymphatic: Hematologic/Lymphatic: Reports no additional hematologic/lymphatic complaints and Reports as per HPI Allergic/Immunologic: Allergic/Immunologic: Reports no additional allergic/immunologic complaints and Reports as per HPI PMFSH Past Medical History Medical History (Updated 03/14/22 @ 00:21 by Jos Velázquez MD) Anxiety Bloating Depression Nausea alone Osteoporosis Rectal Pain Thyroid disease Surgical History Surgical History Previous section Family History Family History (Updated 03/13/22 @ 23:24 by Grace Briseno RN) Father Family history of ulcerative colitis Malignant neoplasm of prostate Diabetes mellitus Acute myocardial infarction Depression Mother Family history of pancreatic cancer Pancreatitis Other Family history of chronic obstructive pulmonary disease Family history of gastrointestinal disorder Family history of primary malignant neoplasm of liver Social History Social History Smoking status: Never smoker Alcohol intake: never Alcohol use details: social Substance use: never Gender identity (if verbalized by the patient): Female Spiritual care concerns: No Meds Home Medications and Allergies Home Medications Medication Instructions Recorded Confirmed Type mirtazapine 7.5 mg tablet 7.5 mg PO HS 03/04/22 03/13/22 History duloxetine 20 mg capsule,delayed 20 mg PO DAILY 03/13/22 03/13/22 His
[2022-03-13] MEDS: PIPERACILLIN/TAZOBACTAM SOD 4.5 GM in SODIUM CHLORIDE 0.9% IV 100 ML 200 ML IVPB (21:10)
[2022-03-13 22:18] LABS: SARS-CoV-2 RNA PCR Negative
[2022-03-13 22:31] VITALS: BP 122/104
[2022-03-13 23:10] VITALS: BP 142/75; PULSE 87; RESP 20; O2SAT 96
--- NOTE | 2022-03-13 23:22 | ADMGEN ---
This patient, Yuki Nino, was admitted to [facility] Surg Room 303-01. Patient/family oriented to hospital policies and general routines including ID bracelet, bed and alarms, visiting hours, pain management, procedures, bathroom and other care routines, personal items, smoking policy, room service/diet, and visiting hours. Information on how to activate the Rapid Response Team has been discussed. Patient/Family are encouraged to report perceived risks to care and to ask questions if they do not understand what they are told or what they should do.
[2022-03-13 23:30] VITALS: BP 139/79; PULSE 73; RESP 16; TEMP 36.8; O2SAT 96
[2022-03-13 23:33] VITALS: BMI 32.4
[2022-03-14] MEDS: PIPERACILLIN/TAZOBACTAM SOD 4.5 GM in SODIUM CHLORIDE 0.9% IV 100 ML 200 ML IVPB ×3 (05:25→21:01)
[2022-03-14 06:00] VITALS: BP 121/55; PULSE 64; RESP 16; TEMP 36.1; O2SAT 98
[2022-03-14 08:00] VITALS: PULSE 64; RESP 16; O2SAT 98
--- NOTE | 2022-03-14 08:52 | PM.IMPN ---
Progress Note: A&P Assessment and Plan (1) Diverticulitis of intestine with abscess: Code(s): K57.80 - Diverticulitis of intestine, part unspecified, with perforation and abscess without bleeding Status: Acute Assessment and Plan: - Not meeting Sepsis criteria. - Diverticulitis and related abscess as noted by CT of abdomen and pelvis. - Continue IV Zosyn. - Monitor labs and vitals. - Gen Sgy was consulted and their recommendations have been made. Will continue with current plan and re-evaluate tomorrow. No need for IR drainage at this point. - Awaiting consult of GI. - Clears - Continue pain meds and anti-emetics prn. (2) Rectal Pain: Code(s): K62.89 - Other specified diseases of anus and rectum Status: Acute Assessment and Plan: - See problem #1 (3) Pelvic pain: Code(s): R10.2 - Pelvic and perineal pain Status: Acute Assessment and Plan: - See problem #1 (4) Nausea alone: Code(s): R11.0 - Nausea Status: Acute Assessment and Plan: - PRN anti-emetics - Clear liquid diet. (5) Thyroid disease: Code(s): E07.9 - Disorder of thyroid, unspecified Status: Acute Assessment and Plan: - Continue home medication. (6) Phlebitis: Code(s): I80.9 - Phlebitis and thrombophlebitis of unspecified site Status: Acute Assessment and Plan: - Superficial only, Left forearm from superficial IV. - Area is firm and red. - Continue IV Zosyn and monitor. Additional Plan Barrier to discharge: Awaiting consult of General surgery secondary to abscess identification as well as consult GI secondary to patient's remote history of Crohn's and confusion about whether or not patient actually has. Time Spent With Patient Time: 19 minutes Subjective Date/time seen: 03/14/22 08:45 This very pleasant 61-year-old female was examined at the bedside today in interval assessment after being admitted last night for acute diverticulitis without abscess formation. Patient endorses this morning that her symptoms are starting to improve with less pain, no diarrhea yet this morning. She also tells me that she had been told 1 time that she had Crohn's disease, however on her last colonoscopy which was 3 years ago she was told that they did not see any Crohn's disease. She has a significant family history of Crohn's disease and ulcerative colitis noting that she has lost 2 siblings secondary to Crohn's. She sees Dr. Carranza for GI, and he performed her last colonoscopy 3 years ago. We are still awaiting consult of General surgery today as patient does have an abscess, and I will consider consult of Dr. Carranza as well. Patient currently denies any chest pain, dyspnea, nausea, vomiting, diarrhea, urinary complaints of hematuria, frequency, burning or urgency in she has no complaints of headache, dizziness or weakness. She does complain of having pain, redness and discomfort at the site of where her IV was left arm last evening. The IV was removed patient still has painful area over the site of the vein that was utilized. We will watch for phlebitis. Review of Systems Review of Systems: A 12 point review of systems was performed. All systems reviewed & are unremarkable except as noted in HPI and below Exam Const: General: comfortable and no acute distress HENMT: Ears: TM's normal bilaterally and TMs normal General nose exam: Normal nares present and no epistaxis Mouth: Yes moist mucous membranes Eyes: General: appearance normal, both eyes and all related structures Sclera: sclerae normal and normal sclerae Pupils: Equal, round and reactive pupils present EOM: EOMs intact bilaterally Neck: Neck: supple and no JVD Thyroid: thyroid normal Carotids: no bruits Lymphatic: lymphadenopathy not noted Resp: Effort & Inspection: normal respiratory effort Auscultation: clear to auscultation bilaterally Cardio: Rate: regular rate Rhythm: regular rhythm H
--- NOTE | 2022-03-14 11:01 | PM.CNGS ---
Assessment and Plan Assessment and plan (1) Diverticulitis of intestine with abscess: Code(s): K57.80 - Diverticulitis of intestine, part unspecified, with perforation and abscess without bleeding Status: Acute Assessment and Plan: appears she has only had the 2 episodes of diverticulitis. I explained the nature of diverticulitis to the patient. I explained that typically this will resolve without surgical intervention. Occasionally an abscess will enlarge and require drainage but at the current size of 2.8 cm, it is more likely this will resolve with only antibiotic therapy. Will start her on clear liquid diet. Continue IV Zosyn. She has analgesics available. Recheck labs and exam again tomorrow. She has had good improvement with just a few hours of antibiotics. History of Present Illness Consult details Consult date: 03/14/22 Reason for consult: abdominal pain Requesting physician: Cesar Stover MD Narrative: Patient is a 61-year-old woman who has had suprapubic pain for a couple of weeks. This has gotten progressively worse and radiated to her inner thighs as well as to her perineum. She came to the emergency room yesterday. Evaluation there showed a normal white blood cell count. Examination showed some mid abdominal tenderness. CT scan of the abdomen and pelvis showed acute diverticulitis with a 2.8 cm. Diverticular abscess. I discussed the patient with the emergency room physician. She is seen now in consultation. This morning, she feels much better. The suprapubic pain which was quite severe is gone. She still has pain and pressure to the perineum and rectum. She has not had any diarrhea nausea or vomiting. She did have an episode of diverticulitis which was much more mild and was treated as an outpatient back in December. She had a colonoscopy done April 04, 2019. This showed a 5 mm sigmoid polyp but was otherwise negative. Repeat colonoscopy was not recommended for until 5 years. Patient had a previous but no other abdominal surgery. She is seen now in consultation regarding acute diverticulitis with abscess. Review of Systems Review of Systems: All systems reviewed & are unremarkable except as noted in HPI and below ( HPI and those items noted below) Constitutional: Constitutional: Denies chills and Denies fever(s) Cardiovascular: Cardiovascular: Denies chest pain, Denies diaphoresis, Denies dyspnea and Denies paroxysmal nocturnal dyspnea Respiratory: Respiratory: Denies chest congestion, Denies cough and Denies dyspnea Gastrointestinal: Gastrointestinal: Reports as per HPI, Reports abdominal pain, Denies dyspepsia, Denies heartburn, Denies diarrhea, Denies nausea and Denies vomiting Integumentary/Breasts: Skin/Breast: Denies lesions and Denies rash [facility] Past Medical History Medical History (Updated 03/14/22 @ 00:21 by Jos Velázquez MD) Anxiety Bloating Depression Nausea alone Osteoporosis Rectal Pain Thyroid disease Surgical History Surgical History Previous section Family History Family History (Updated 03/13/22 @ 23:24 by Grace Briseno RN) Father Family history of ulcerative colitis Malignant neoplasm of prostate Diabetes mellitus Acute myocardial infarction Depression Mother Family history of pancreatic cancer Pancreatitis Other Family history of chronic obstructive pulmonary disease Family history of gastrointestinal disorder Family history of primary malignant neoplasm of liver Social History Social History Smoking status: Never smoker Alcohol intake: never Alcohol use details: social Substance use: never Gender identity (if verbalized by the patient): Female Spiritual care concerns: No Meds Home Medications and Allergies Home Medications Medication Instructions Recorded Confirmed
--- NOTE | 2022-03-14 12:15 | WPDGICN ---
Assessment and Plan Assessment and plan (1) Diverticulitis of intestine with abscess: Code(s): K57.80 - Diverticulitis of intestine, part unspecified, with perforation and abscess without bleeding Status: Acute Assessment and Plan: surgery on board and she is already doing better with medical treatment and abx CL diet for now colonoscopy in 6-8 weeks as outpatient when acute infection resolves (2) Pelvic pain: Code(s): R10.2 - Pelvic and perineal pain Status: Acute Assessment and Plan: better, pain meds prn (3) Nausea alone: Code(s): R11.0 - Nausea Status: Acute Assessment and Plan: better GI Consult Note Consult date/time: 03/14/22 12:15 Reason for consult: complicated diverticulitis HPI: Yuki Nino is a 61 year old female with previous history of diverticulitis May this year treated medically and now she is back with worsening pain in lower abdomen for last several days, sharp and severe with shooting sensation and radiation to groin. CT scan showed acute sigmoid diverticulitis with small peridiverticular abscess measuring 2.8 x 2 x 1.3 cm, started on iv antibiotics and surgery on board. Previous surgery , several family members with Crohn's, last colonoscopy with polyp in 2019. She is already feeling better Review of Systems Review of Systems: All systems reviewed & are unremarkable except as noted in HPI and below ( HPI and those items noted below) Constitutional: Constitutional: Denies chills and Denies fever(s) Cardiovascular: Cardiovascular: Denies chest pain, Denies diaphoresis, Denies dyspnea and Denies paroxysmal nocturnal dyspnea Respiratory: Respiratory: Denies chest congestion, Denies cough and Denies dyspnea Gastrointestinal: Gastrointestinal: Reports as per HPI, Reports abdominal pain, Denies dyspepsia, Denies heartburn, Denies diarrhea, Denies nausea and Denies vomiting Integumentary/Breasts: Skin/Breast: Denies lesions and Denies rash PMFSH Past Medical History Medical History Anxiety Bloating Depression Nausea alone Osteoporosis Rectal Pain Thyroid disease Surgical History Surgical History Previous section Family History Family History Father Family history of ulcerative colitis Malignant neoplasm of prostate Diabetes mellitus Acute myocardial infarction Depression Mother Family history of pancreatic cancer Pancreatitis Other Family history of chronic obstructive pulmonary disease Family history of gastrointestinal disorder Family history of primary malignant neoplasm of liver Social History Social History Smoking status: Never smoker Alcohol intake: never Alcohol use details: social Substance use: never Gender identity (if verbalized by the patient): Female Spiritual care concerns: No Meds Home Medications and Allergies Home Medications Medication Instructions Recorded Confirmed Type mirtazapine 7.5 mg tablet 7.5 mg PO HS 03/04/22 03/13/22 History duloxetine 20 mg capsule,delayed 20 mg PO DAILY 03/13/22 03/13/22 History release (Cymbalta) thyroid (pork) 90 mg tablet 90 mg PO DAILY 03/13/22 03/13/22 History ([place] Thyroid) Allergies Allergy/AdvReac Type Severity Reaction Status Date / Time No Known Allergies Allergy Verified 03/13/22 13:29 Vital Signs Vital Signs - 24 hr 03/13/22 13:38 03/13/22 20:26 03/13/22 20:32 Temperature 97.7 F Pulse Rate 75 87 Respiratory Rate 16 20 Blood Pressure 121/90 131/97 H 142/75 H Pulse Oximetry 99 96 Oxygen Delivery Room Air 03/13/22 22:31 03/13/22 23:10 03/13/22 23:30 Temperature 98.2 F Pulse Rate 87 73 Respiratory Rate 20 16 Blood Pressure 122/104
[2022-03-14 14:00] VITALS: BP 120/67; PULSE 59; RESP 20; TEMP 36.6; O2SAT 98
[2022-03-14] MEDS: MIRTAZAPINE 7.5 MG TABLET PO (21:01)
[2022-03-14 22:00] VITALS: BP 114/62; PULSE 64; RESP 16; TEMP 37; O2SAT 95
[2022-03-15] MEDS: PIPERACILLIN/TAZOBACTAM SOD 4.5 GM in SODIUM CHLORIDE 0.9% IV 100 ML 200 ML IVPB ×3 (05:52→21:22)
[2022-03-15] MEDS: THYROID 30 MG TABLET 90 MG PO (05:53)
[2022-03-15 06:00] VITALS: BP 130/68; PULSE 57; RESP 16; TEMP 36.1; O2SAT 97
[2022-03-15 06:16] LABS: Basophils Percent Auto 0.6 % (0.2-1.2); Eosinophils Absolute Auto 0.1 K/mm3 (0-0.3); Eosinophils Percent Auto 1.7 % (0-4.4); Hematocrit 40.7 % (37.0-47.0); Immature Granulocyte Absolute 0.04 K/mm3 (0.00-0.031); Immature Granulocyte Percent A 0.6 % (0-0.5); Lymphocytes Absolute Auto 2.12 K/mm3 (0.9-3.2); Lymphocytes Percent Auto 31.9 % (18.3-44.2); Mean Corpuscular HGB Conc 31.9 g/dl (32-36); Mean Corpuscular Hemoglobin 29.3 pg (26-34); Mean Corpuscular Volume 91.7 fl (80-100); Monocytes Absolute Auto 0.6 K/mm3 (0.1-0.6); Neutrophils Absolute Auto 3.7 K/mm3 (1.3-6.7); Neutrophils Percent Auto 56.2 % (45.5-73.1); Platelet Count Result 169 k/mm3 (150-375); Red Blood Count 4.44 M/mm3 (4.2-5.4); Red Cell Distribution Width 13.5 % (11.5-14.5); White Blood Count 6.7 K/mm3 (4.5-10.0)
[2022-03-15 06:30] LABS: Alanine Aminotransferase 18 U/L (6-35); Albumin Level 3.9 g/dL (3.5-5.1); Alkaline Phosphatase 46 U/L (38-126); Anion Gap 5 mmol/L (8-16); Aspartate Amino Transferase 22 U/L (14-36); Bilirubin,Total 0.6 mg/dL (0.2-1.3); Blood Urea Nitrogen 12 mg/dL (7-17); Calcium 8.4 mg/dL (8.4-10.2); Carbon Dioxide 29 mmol/L (22-30); Chloride 105 mmol/L (98-107); Estimated CRCL calculation 54 ml/min; Estimated Glomerular Filt Rate 51; Glucose 104 mg/dL (65-110); Magnesium 2.2 mg/dL (1.6-2.3); Potassium 4.1 mmol/L (3.4-5.0); Sodium 139 mmol/L (137-145)
[2022-03-15 08:00] VITALS: PULSE 57; RESP 16; O2SAT 97
--- NOTE | 2022-03-15 10:57 | PM.PNGS ---
Progress Note: A&P Assessment and Plan (1) Diverticulitis of intestine with abscess: Code(s): K57.80 - Diverticulitis of intestine, part unspecified, with perforation and abscess without bleeding Status: Acute Assessment and Plan: Abdominal pain better. Patient extremely hungry. Will advance to full liquid diet and give Ensure nutritional supplements. Continue IV Zosyn antibiotics. Patient also cycling off her Cymbalta and not currently taking this medicine. (2) Pelvic pain: Code(s): R10.2 - Pelvic and perineal pain Status: Acute Assessment and Plan: Presumably due to diverticulitis. Abdominal pain better but this pain persists. Subjective Subjective Date/Time Seen: 03/15/22 10:57 Patient reports: still having pain (Pain to perineum and inside of legs persists), tolerating liquids well (Complains she is very hungry would like full liquid at least), no flatus, no bowel movement and afebrile Review of Systems Review of Systems: All systems reviewed & are unremarkable except as noted in HPI and below Cardiovascular: Cardiovascular: Denies chest pain and Denies dyspnea Respiratory: Respiratory: Denies cough and Denies dyspnea Gastrointestinal: Gastrointestinal: Reports as per HPI Exam Const: General: comfortable and no acute distress; No confusion GI: Inspection: non-distended GI Palp: Yes Soft to palpation, No Tenderness to palpation present (GI), No Guarding due to palpation present (GI) and No Rebound tenderness present Auscultation: normal bowel sounds Neuro: General: patient oriented x3, no focal motor deficits and No confusion Extrem: General: no calf tenderness and no edema Objective Data Vital Signs Vital Signs: Vital Signs - 24 hr 03/14/22 14:00 03/14/22 22:00 03/14/22 21:00 Temperature 36.6 C 37.0 C Pulse Rate 59 L 64 Respiratory Rate 20 16 Blood Pressure 120/67 114/62 Pulse Oximetry 98 95 Oxygen Delivery Room Air 03/15/22 06:00 Temperature 36.1 C L Pulse Rate 57 L Respiratory Rate 16 Blood Pressure 130/68 Pulse Oximetry 97 Oxygen Delivery Intake/Output Intake/Output: Intake & Output 03/12/22 03/13/22 03/14/22 03/15/22 23:59 23:59 23:59 23:59 Intake Total 100 2370 850 Output Total 1800 Balance 100 570 850 Meds/Results Medications: Active Medications Generic Name Dose Route Start Last Admin Trade Name Freq PRN Reason Stop Dose Admin Acetaminophen 650 mg 03/13/22 21:05 Acetaminophen 325 Mg Tablet PO Q4H PRN Mild Pain (1-3) or Fever Hydrocodone Bitart/Acetaminophen 1 tab 03/13/22 21:05 Hydrocodone/Acetaminophen (*Crx) 5-325 Mg Tablet PO Q4H PRN Pain Rated 4-6 Duloxetine HCl 20 mg 03/14/22 09:00 03/15/22 10:43 Duloxetine Hcl 20 Mg Capsule.Dr PO Not Given DAILY [facility] Enoxaparin Sodium 40 mg 03/15/22 09:00 03/15/22 10:43 Enoxaparin 40 Mg/0.4 Ml Syringe SUB-Q Not Given DAILY [facility] Piperacillin Sod/Tazobactam 100 mls @ 200 mls/hr 03/14/22 06:00 03/15/22 06:22 Sod 4.5 gm/ Sodium Chloride IVPB Infused Q8HR [facility] Infusion Mirtazapine 7.5 mg 03/14/22 21:00 03/14/22 21:01 Mirtazapine 7.5 Mg Tablet PO 7.5 mg HS [facility] Administration Morphine Sulfate 4 mg 03/13/22 21:05 Morphine Sulfate (*Crx) 4 Mg/Ml Inj IV PUSH Q2H PRN Pain Rated 7-10 Ondansetron HCl 4 mg 03/13/22 21:05 Ondansetron Inj 4 Mg/2 Ml Vial IV PUSH Q4H PRN Nausea Thyroid 90 mg 03/14/22 07:30 03/15/22 05:53 Thyroid 30 Mg Tablet PO 90 mg DAILY@0630 [facility] Administration Radiology Results: ITS Impressions Abdomen/Pelvis CT 03/13/22 20:16 IMPRESSION: 1. Acute sigmoid diverticulitis with small peridiverticular abscess measuring 2.8 x 2 x 1.3 cm. Labs Labs: Laboratory Results - last 24 hr 03/15/22 03/15/22 05:42 05:42 WBC 6.7 RBC 4.44 Hgb 13.0 Hct 40.7 MCV 91.7 MCH 29.3 MCHC 31.9 L RDW 13.5 Plt Count 169
--- NOTE | 2022-03-15 11:39 | PM.IMPN ---
Progress Note: A&P Assessment and Plan (1) Diverticulitis of intestine with abscess: Code(s): K57.80 - Diverticulitis of intestine, part unspecified, with perforation and abscess without bleeding Status: Acute Assessment and Plan: - Not meeting Sepsis criteria. - Diverticulitis and related abscess as noted by CT of abdomen and pelvis. - Continue IV Zosyn. - Monitor labs and vitals. - Gen Xavier was consulted and their recommendations have been made. Will continue with current plan and re-evaluate tomorrow. No need for IR drainage at this point. - GI consulted and wants to do a scope in 6-8 weeks as an outpatient. - Diet increased to full liquid. - Continue pain meds and anti-emetics prn. (2) Rectal Pain: Code(s): K62.89 - Other specified diseases of anus and rectum Status: Acute Assessment and Plan: - See problem #1 (3) Pelvic pain: Code(s): R10.2 - Pelvic and perineal pain Status: Acute Assessment and Plan: - See problem #1 (4) Nausea alone: Code(s): R11.0 - Nausea Status: Acute Assessment and Plan: - PRN anti-emetics - Clear liquid diet. (5) Thyroid disease: Code(s): E07.9 - Disorder of thyroid, unspecified Status: Acute Assessment and Plan: - Continue home medication. (6) Phlebitis: Code(s): I80.9 - Phlebitis and thrombophlebitis of unspecified site Status: Acute Assessment and Plan: - Superficial only, Left forearm from superficial IV. - Area is firm and red, but mildly improved today. - Continue IV Zosyn and monitor. Time Spent With Patient Time: 25 minutes Subjective Date/time seen: 03/15/22 0900 This pt. is examined at the bedside today in interval assessment. She is being treated for her Diverticulitis with abscess development and is also being managed by Gen. Duc Iyer. The pt. is very critical of the food and nutrition this morning. Yesterday she was on a regular diet that was changed to a liquid diet for dinner and for breakfast this morning and she endorses that our foods and nutrition options here in this hospital are completely inedible. Her diet has been increased to a Full liquid today by Gen Sgy. She still endorses mild lower abdominal pain in the LLQ and denies any further recent diarrhea. She denies any current CP, dyspnea, N/V/D or any urinary complaints today. She remains on zosyn and GI has consulted and wants to follow up with scope in 6-8 weeks. Review of Systems Review of Systems: All systems reviewed & are unremarkable except as noted in HPI and below Exam Const: General: comfortable and no acute distress HENMT: Ears: TM's normal bilaterally and TMs normal General nose exam: Normal nares present and no epistaxis Mouth: Yes moist mucous membranes Eyes: General: appearance normal, both eyes and all related structures Sclera: sclerae normal and normal sclerae Pupils: Equal, round and reactive pupils present EOM: EOMs intact bilaterally Neck: Neck: supple and no JVD Thyroid: thyroid normal Carotids: no bruits Lymphatic: lymphadenopathy not noted Resp: Effort & Inspection: normal respiratory effort Auscultation: clear to auscultation bilaterally Cardio: Rate: regular rate Rhythm: regular rhythm Heart sounds: no gallops, no murmurs and no rubs Other: S1 and S2 are present. No S3, S4, displacement of PMI. GI: Inspection: non-distended Auscultation: normal bowel sounds Skin: General skin exam: normal color and no rashes or lesions noted Lesions: no lesions noted Rashes: no rashes noted Wounds: no wounds Neuro: General: gait normal Cranial nerves: Yes Equal, round and reactive pupils present Speech: normal speech Motor exam (neuro): 5/5 motor strength present throughout and Normal motor muscle tone present throughout Sensory Exam: normal sensation Extrem: General: normal to inspection, no edema and no pedal edema Other: Patient freely and equall
--- NOTE | 2022-03-15 12:54 | WPDGIPROGNO ---
Progress Note: A&P Assessment and Plan (1) Diverticulitis of intestine with abscess: Code(s): K57.80 - Diverticulitis of intestine, part unspecified, with perforation and abscess without bleeding Status: Acute Assessment and Plan: ok to advance full liquid diet responding to medical treatment surgery on board colonoscopy in 6-8 weeks (2) Pelvic pain: Code(s): R10.2 - Pelvic and perineal pain Status: Acute Assessment and Plan: improving, from diverticulitis Subjective Date/time seen: 03/15/22 12:54 Interval history: overall better, less pain today and had loose stool Review of Systems Review of Systems: All systems reviewed & are unremarkable except as noted in HPI and below Exam Const: General: comfortable and no acute distress HENMT: General nose exam: Normal nares present Eyes: General: appearance normal, both eyes and all related structures Neck: Neck: no JVD Resp: Auscultation: clear to auscultation bilaterally Cardio: Rate: regular rate Rhythm: regular rhythm GI: Inspection: non-distended GI Palp: Yes Soft to palpation, Yes Tenderness to palpation present (GI) (mild ttp in llq, no rebound) and No Guarding due to palpation present (GI) Skin: General skin exam: normal color Neuro: General: gait normal Speech: normal speech Extrem: General: normal to inspection Psych: Mental Status: mental status grossly normal Objective Data Vital Signs Vital Signs: Vital Signs - 24 hr 03/14/22 14:00 03/14/22 22:00 03/14/22 21:00 Temperature 97.9 F 98.6 F Pulse Rate 59 L 64 Respiratory Rate 20 16 Blood Pressure 120/67 114/62 Pulse Oximetry 98 95 Oxygen Delivery Room Air 03/15/22 06:00 03/15/22 08:00 Temperature 96.9 F L Pulse Rate 57 L 57 L Respiratory Rate 16 16 Blood Pressure 130/68 Pulse Oximetry 97 97 Oxygen Delivery Room Air Intake/Output Intake/Output: Intake & Output 03/12/22 03/13/22 03/14/22 03/15/22 23:59 23:59 23:59 23:59 Intake Total 100 2370 850 Output Total 1800 Balance 100 570 850 Meds/Results Medications: Active Medications Generic Name Dose Route Start Last Admin Trade Name Freq PRN Reason Stop Dose Admin Acetaminophen 650 mg 03/13/22 21:05 Acetaminophen 325 Mg Tablet PO Q4H PRN Mild Pain (1-3) or Fever Hydrocodone Bitart/Acetaminophen 1 tab 03/13/22 21:05 Hydrocodone/Acetaminophen (*Crx) 5-325 Mg Tablet PO Q4H PRN Pain Rated 4-6 Duloxetine HCl 20 mg 03/14/22 09:00 03/15/22 10:43 Duloxetine Hcl 20 Mg Capsule.Dr PO Not Given DAILY [facility] Enoxaparin Sodium 40 mg 03/15/22 09:00 03/15/22 10:43 Enoxaparin 40 Mg/0.4 Ml Syringe SUB-Q Not Given DAILY [facility] Piperacillin Sod/Tazobactam 100 mls @ 200 mls/hr 03/14/22 06:00 03/15/22 06:22 Sod 4.5 gm/ Sodium Chloride IVPB Infused Q8HR [facility] Infusion Mirtazapine 7.5 mg 03/14/22 21:00 03/14/22 21:01 Mirtazapine 7.5 Mg Tablet PO 7.5 mg HS [facility] Administration Morphine Sulfate 4 mg 03/13/22 21:05 Morphine Sulfate (*Crx) 4 Mg/Ml Inj IV PUSH Q2H PRN Pain Rated 7-10 Ondansetron HCl 4 mg 03/13/22 21:05 Ondansetron Inj 4 Mg/2 Ml Vial IV PUSH Q4H PRN Nausea Thyroid 90 mg 03/14/22 07:30 03/15/22 05:53 Thyroid 30 Mg Tablet PO 90 mg DAILY@0630 [facility] Administration Radiology Results: ITS Impressions Abdomen/Pelvis CT 03/13/22 20:16 IMPRESSION: 1. Acute sigmoid diverticulitis with small peridiverticular abscess measuring 2.8 x 2 x 1.3 cm. Labs Labs: Laboratory Results - last 24 hr 03/15/22 03/15/22 05:42 05:42 WBC 6.7 RBC 4.44 Hgb 13.0 Hct 40.7 MCV 91.7 MCH 29.3 MCHC 31.9 L RDW 13.5 Plt Count 169 MPV 11.0 H Immature Gran % (Auto) 0.6 H Neut % (Auto) 56.2 Lymph % (Auto) 31.9 [place] % (Auto) 9.0 H Eos % (Auto) 1.7 Baso % (Auto) 0.6 Lymph # (Auto) 2.12 [place] # (Auto) 0.6 Eos # (Auto) 0.1
[2022-03-15 14:00] VITALS: BP 153/83; PULSE 70; RESP 20; TEMP 36.1; O2SAT 100
[2022-03-15] MEDS: MIRTAZAPINE 7.5 MG TABLET PO (21:23)
[2022-03-15 21:50] VITALS: BP 124/53; PULSE 64; RESP 16; TEMP 36; O2SAT 99
[2022-03-16] MEDS: PIPERACILLIN/TAZOBACTAM SOD 4.5 GM in SODIUM CHLORIDE 0.9% IV 100 ML 200 ML IVPB ×3 (05:19→20:51)
[2022-03-16 06:00] VITALS: BP 121/70; PULSE 60; RESP 18; TEMP 36.2; O2SAT 99
[2022-03-16] MEDS: THYROID 30 MG TABLET 90 MG PO (06:08)
[2022-03-16 06:18] LABS: Basophils Percent Auto 0.4 % (0.2-1.2); Eosinophils Absolute Auto 0.1 K/mm3 (0-0.3); Eosinophils Percent Auto 1.4 % (0-4.4); Hematocrit 40.9 % (37.0-47.0); Hemoglobin 13.2 g/dL (12.0-15.0); Immature Granulocyte Absolute 0.03 K/mm3 (0.00-0.031); Immature Granulocyte Percent A 0.4 % (0-0.5); Lymphocytes Percent Auto 28.4 % (18.3-44.2); Mean Corpuscular HGB Conc 32.3 g/dl (32-36); Mean Corpuscular Hemoglobin 29.7 pg (26-34); Mean Corpuscular Volume 91.9 fl (80-100); Mean Platelet Volume 11.3 fl (7.4-10.4); Monocytes Absolute Auto 0.7 K/mm3 (0.1-0.6); Monocytes Percent Auto 10.1 % (2.6-8.5); Neutrophils Absolute Auto 4.2 K/mm3 (1.3-6.7); Neutrophils Percent Auto 59.3 % (45.5-73.1); Platelet Count Result 180 k/mm3 (150-375); Red Blood Count 4.45 M/mm3 (4.2-5.4); Red Cell Distribution Width 13.2 % (11.5-14.5)
[2022-03-16 06:34] LABS: Alanine Aminotransferase 19 U/L (6-35); Albumin Level 4.1 g/dL (3.5-5.1); Alkaline Phosphatase 42 U/L (38-126); Anion Gap 9 mmol/L (8-16); Aspartate Amino Transferase 25 U/L (14-36); Bilirubin,Total 0.5 mg/dL (0.2-1.3); Blood Urea Nitrogen 16 mg/dL (7-17); Calcium 8.6 mg/dL (8.4-10.2); Carbon Dioxide 26 mmol/L (22-30); Chloride 104 mmol/L (98-107); Estimated CRCL calculation 59 ml/min; Estimated Glomerular Filt Rate 57; Glucose 94 mg/dL (65-110); Magnesium 2.5 mg/dL (1.6-2.3); Potassium 4.1 mmol/L (3.4-5.0); Sodium 139 mmol/L (137-145)
--- NOTE | 2022-03-16 08:36 | PM.PNGS ---
Progress Note: A&P Assessment and Plan (1) Diverticulitis of intestine with abscess: Code(s): K57.80 - Diverticulitis of intestine, part unspecified, with perforation and abscess without bleeding Status: Acute Assessment and Plan: continues to improve. Will start low fiber diet which she will continue for 2 weeks after discharge. Continue IV antibiotics today and probably home tomorrow on oral antibiotics and low-fiber diet. (2) Pelvic pain: Code(s): R10.2 - Pelvic and perineal pain Status: Acute Assessment and Plan: Resolved. Likely due to diverticulitis. Subjective Subjective Date/Time Seen: 03/16/22 08:36 Patient reports: feels better, pain is less ( not having perineal or rectal pain any more.) and afebrile Review of Systems Review of Systems: All systems reviewed & are unremarkable except as noted in HPI and below ( HPI) Exam Const: General: comfortable, alert and awake Nutritional Appearance: well nourished Orientation/consciousness: No confusion GI: Inspection: non-distended GI Palp: Yes Soft to palpation and No Tenderness to palpation present (GI) Auscultation: normal bowel sounds Objective Data Vital Signs Vital Signs: Vital Signs - 24 hr 03/15/22 14:00 03/15/22 21:50 03/15/22 21:00 Temperature 36.1 C L 36.0 C L Pulse Rate 70 64 Respiratory Rate 20 16 Blood Pressure 153/83 H 124/53 L Pulse Oximetry 100 99 Oxygen Delivery Room Air 03/16/22 06:00 Temperature 36.2 C L Pulse Rate 60 Respiratory Rate 18 Blood Pressure 121/70 Pulse Oximetry 99 Oxygen Delivery Intake/Output Intake/Output: Intake & Output 03/13/22 03/14/22 03/15/22 03/16/22 23:59 23:59 23:59 23:59 Intake Total 100 2370 2520 300 Output Total 1800 Balance 074 571 8752 300 Meds/Results Medications: Active Medications Generic Name Dose Route Start Last Admin Trade Name Freq PRN Reason Stop Dose Admin Acetaminophen 650 mg 03/13/22 21:05 Acetaminophen 325 Mg Tablet PO Q4H PRN Mild Pain (1-3) or Fever Hydrocodone Bitart/Acetaminophen 1 tab 03/13/22 21:05 Hydrocodone/Acetaminophen (*Crx) 5-325 Mg Tablet PO Q4H PRN Pain Rated 4-6 Duloxetine HCl 20 mg 03/14/22 09:00 03/15/22 10:43 Duloxetine Hcl 20 Mg Capsule.Dr PO Not Given DAILY [facility] Enoxaparin Sodium 40 mg 03/15/22 09:00 03/15/22 10:43 Enoxaparin 40 Mg/0.4 Ml Syringe SUB-Q Not Given DAILY [facility] Piperacillin Sod/Tazobactam 100 mls @ 200 mls/hr 03/14/22 06:00 03/16/22 06:08 Sod 4.5 gm/ Sodium Chloride IVPB Infused Q8HR [facility] Infusion Mirtazapine 7.5 mg 03/14/22 21:00 03/15/22 21:23 Mirtazapine 7.5 Mg Tablet PO 7.5 mg HS [facility] Administration Morphine Sulfate 4 mg 03/13/22 21:05 Morphine Sulfate (*Crx) 4 Mg/Ml Inj IV PUSH Q2H PRN Pain Rated 7-10 Ondansetron HCl 4 mg 03/13/22 21:05 Ondansetron Inj 4 Mg/2 Ml Vial IV PUSH Q4H PRN Nausea Thyroid 90 mg 03/14/22 07:30 03/16/22 06:08 Thyroid 30 Mg Tablet PO 90 mg DAILY@0630 [facility] Administration Radiology Results: ITS Impressions Abdomen/Pelvis CT 03/13/22 20:16 IMPRESSION: 1. Acute sigmoid diverticulitis with small peridiverticular abscess measuring 2.8 x 2 x 1.3 cm. Labs Labs: Laboratory Results - last 24 hr 03/16/22 03/16/22 05:39 05:39 WBC 7.0 RBC 4.45 Hgb 13.2 Hct 40.9 MCV 91.9 MCH 29.7 MCHC 32.3 RDW 13.2 Plt Count 180 MPV 11.3 H Immature Gran % (Auto) 0.4 Neut % (Auto) 59.3 Lymph % (Auto) 28.4 [place] % (Auto) 10.1 H Eos % (Auto) 1.4 Baso % (Auto) 0.4 Lymph # (Auto) 2.00 [place] # (Auto) 0.7 H Eos # (Auto) 0.1 Baso # (Auto) 0.0 Abs Immat Gran (auto) 0.03 Absolute Neuts (auto) 4.2 Absolute Nucleated RBC 0.0 Nucleated RBC % 0.0 Sodium 139 Potassium 4.1 Chloride 104 Carbon Dioxide 26 Anion Gap 9 BUN 16 Creatinine 1.00 Estim Creat Clear Calc 59 Est
--- NOTE | 2022-03-16 09:31 | PM.IMPN ---
Progress Note: A&P Assessment and Plan (1) Diverticulitis of intestine with abscess: Code(s): K57.80 - Diverticulitis of intestine, part unspecified, with perforation and abscess without bleeding Status: Acute Assessment and Plan: - Not meeting Sepsis criteria. - Diverticulitis and related abscess as noted by CT of abdomen and pelvis. - Continue IV Zosyn. - Monitor labs and vitals. - Gen Sgy was consulted and their recommendations have been made. Will continue with current plan and re-evaluate tomorrow. No need for IR drainage at this point. - GI consulted and wants to do a scope in 6-8 weeks as an outpatient. - Diet increased to Low Residue - Continue pain meds and anti-emetics prn. (2) Rectal Pain: Code(s): K62.89 - Other specified diseases of anus and rectum Status: Resolved Assessment and Plan: - See problem #1 (3) Pelvic pain: Code(s): R10.2 - Pelvic and perineal pain Status: Resolved Assessment and Plan: - See problem #1 (4) Nausea alone: Code(s): R11.0 - Nausea Status: Resolved Assessment and Plan: - PRN anti-emetics (5) Thyroid disease: Code(s): E07.9 - Disorder of thyroid, unspecified Status: Chronic Assessment and Plan: - Continue home medication. (6) Phlebitis: Code(s): I80.9 - Phlebitis and thrombophlebitis of unspecified site Status: Resolved Assessment and Plan: - Redness of area has resolved and there is no palpable cord. Time Spent With Patient Time with patient: 15 - 25 minutes Subjective Date/time seen: 03/16/22 0840 This pt. was examined at the bedside today in interval assessment. She reports to me that she has no pain in the rectum or the lower abdomen currently. Her diet is now low residue. She tells this provider that she has tolerated her diet and would like to go home. Upon speaking with General Surgery, Dr. Coleman advises me that she endorsed to him that she still had a bout of diarrhea this morning, which was not conveyed to me. Therefore, I agree with Dr. Coleman that the pt. may benefit from another day of IV abx and look for possible discharge tomorrow. She will need to continue a low residue diet after the point of discharge for two weeks. At the time of my assessment, she also denies any CP, dyspnea, Urinary complaints. Review of Systems Review of Systems: All systems reviewed & are unremarkable except as noted in HPI and below Exam Const: General: comfortable and no acute distress HENMT: Ears: TM's normal bilaterally and TMs normal General nose exam: Normal nares present and no epistaxis Mouth: Yes moist mucous membranes Eyes: General: appearance normal, both eyes and all related structures Sclera: sclerae normal and normal sclerae Pupils: Equal, round and reactive pupils present EOM: EOMs intact bilaterally Neck: Neck: supple and no JVD Thyroid: thyroid normal Carotids: no bruits Lymphatic: lymphadenopathy not noted Resp: Effort & Inspection: normal respiratory effort Auscultation: clear to auscultation bilaterally Cardio: Rate: regular rate Rhythm: regular rhythm Heart sounds: no gallops, no murmurs and no rubs Other: S1 and S2 are present. No S3, S4, displacement of PMI. GI: Inspection: non-distended GI Palp: Yes Soft to palpation, No Tenderness to palpation present (GI) and No Guarding due to palpation present (GI) Auscultation: normal bowel sounds Skin: General skin exam: normal color and no rashes or lesions noted Lesions: no lesions noted Rashes: no rashes noted Wounds: no wounds Neuro: General: gait normal Cranial nerves: Yes Equal, round and reactive pupils present Speech: normal speech Motor exam (neuro): 5/5 motor strength present throughout and Normal motor muscle tone present throughout Sensory Exam: normal sensation Extrem: General: normal to inspection, no edema and no pedal edema Other: Patient freely and equally moves all
[2022-03-16 09:46] VITALS: O2SAT 98
--- NOTE | 2022-03-16 11:13 | PCDIET ---
Educated pt on a low fiber diet and rationale. Thank you for the consult.
[2022-03-16 14:00] VITALS: BP 115/58; PULSE 57; RESP 18; TEMP 36.3; O2SAT 100
--- NOTE | 2022-03-16 17:30 | WPDGIPROGNO ---
Progress Note: A&P Assessment and Plan (1) Diverticulitis of intestine with abscess: Code(s): K57.80 - Diverticulitis of intestine, part unspecified, with perforation and abscess without bleeding Status: Acute Assessment and Plan: tolerating low fiber diet maybe tomorrow can go home with oral abx surgery on board colonoscopy in 6-8 weeks (2) Pelvic pain: Code(s): R10.2 - Pelvic and perineal pain Status: Resolved Assessment and Plan: almost resolved, from diverticulitis Subjective Date/time seen: 03/16/22 17:30 Interval history: much better and tolerating low fiber diet, + loose stools probably from abx Review of Systems Review of Systems: All systems reviewed & are unremarkable except as noted in HPI and below Exam Const: General: comfortable and no acute distress HENMT: General nose exam: Normal nares present Eyes: General: appearance normal, both eyes and all related structures Neck: Neck: no JVD Resp: Auscultation: clear to auscultation bilaterally Cardio: Rate: regular rate Rhythm: regular rhythm GI: Inspection: non-distended GI Palp: Yes Soft to palpation and No Guarding due to palpation present (GI) Skin: General skin exam: normal color Neuro: General: gait normal Speech: normal speech Extrem: General: normal to inspection Psych: Mental Status: mental status grossly normal Objective Data Vital Signs Vital Signs: Vital Signs - 24 hr 03/15/22 21:50 03/15/22 21:00 03/16/22 06:00 Temperature 96.8 F L 97.1 F L Pulse Rate 64 60 Respiratory Rate 16 18 Blood Pressure 124/53 L 121/70 Pulse Oximetry 99 99 Oxygen Delivery Room Air 03/16/22 09:46 03/16/22 14:00 Temperature 97.4 F L Pulse Rate 57 L Respiratory Rate 18 Blood Pressure 115/58 L Pulse Oximetry 98 100 Oxygen Delivery Room Air Intake/Output Intake/Output: Intake & Output 03/13/22 03/14/22 03/15/22 03/16/22 23:59 23:59 23:59 23:59 Intake Total 100 2370 2520 880 Output Total 1800 Balance 621 676 0526 880 Meds/Results Medications: Active Medications Generic Name Dose Route Start Last Admin Trade Name Freq PRN Reason Stop Dose Admin Acetaminophen 650 mg 03/13/22 21:05 Acetaminophen 325 Mg Tablet PO Q4H PRN Mild Pain (1-3) or Fever Hydrocodone Bitart/Acetaminophen 1 tab 03/13/22 21:05 Hydrocodone/Acetaminophen (*Crx) 5-325 Mg Tablet PO Q4H PRN Pain Rated 4-6 Duloxetine HCl 20 mg 03/14/22 09:00 03/16/22 09:47 Duloxetine Hcl 20 Mg Capsule.Dr PO Not Given DAILY MAICOL Enoxaparin Sodium 40 mg 03/15/22 09:00 03/16/22 09:47 Enoxaparin 40 Mg/0.4 Ml Syringe SUB-Q Not Given DAILY [facility] Piperacillin Sod/Tazobactam 100 mls @ 200 mls/hr 03/14/22 06:00 03/16/22 15:40 Sod 4.5 gm/ Sodium Chloride IVPB Infused Q8HR [facility] Infusion Mirtazapine 7.5 mg 03/14/22 21:00 03/15/22 21:23 Mirtazapine 7.5 Mg Tablet PO 7.5 mg HS MAICOL Administration Morphine Sulfate 4 mg 03/13/22 21:05 Morphine Sulfate (*Crx) 4 Mg/Ml Inj IV PUSH Q2H PRN Pain Rated 7-10 Ondansetron HCl 4 mg 03/13/22 21:05 Ondansetron Inj 4 Mg/2 Ml Vial IV PUSH Q4H PRN Nausea Thyroid 90 mg 03/14/22 07:30 03/16/22 06:08 Thyroid 30 Mg Tablet PO 90 mg DAILY@0630 MAICOL Administration Radiology Results: ITS Impressions Abdomen/Pelvis CT 03/13/22 20:16 IMPRESSION: 1. Acute sigmoid diverticulitis with small peridiverticular abscess measuring 2.8 x 2 x 1.3 cm. Labs Labs: Laboratory Results - last 24 hr 03/16/22 03/16/22 05:39 05:39 WBC 7.0 RBC 4.45 Hgb 13.2 Hct 40.9 MCV 91.9 MCH 29.7 MCHC 32.3 RDW 13.2 Plt Count 180 MPV 11.3 H Immature Gran % (Auto) 0.4 Neut % (Auto) 59.3 Lymph % (Auto) 28.4 Coke % (Auto) 10.1 H Eos % (Auto) 1.4 Baso % (Auto) 0.4 Lymph # (Auto) 2.00 Coke # (Auto) 0.7 H Eos # (Auto) 0.1 Baso # (Auto) 0.0 Abs I
[2022-03-16 20:00] VITALS: PULSE 62; RESP 16; O2SAT 98
[2022-03-16] MEDS: MIRTAZAPINE 7.5 MG TABLET PO (20:38)
[2022-03-16 21:39] VITALS: BP 123/69; PULSE 62; RESP 16; TEMP 36.7; O2SAT 98
[2022-03-17 05:28] VITALS: BP 131/75; PULSE 69; RESP 16; TEMP 36.4; O2SAT 95
[2022-03-17] MEDS: PIPERACILLIN/TAZOBACTAM SOD 4.5 GM in SODIUM CHLORIDE 0.9% IV 100 ML 200 ML IVPB (05:41)
[2022-03-17] MEDS: THYROID 30 MG TABLET 90 MG PO (05:42)
[2022-03-17 06:46] LABS: Basophils Percent Auto 0.5 % (0.2-1.2); Eosinophils Absolute Auto 0.1 K/mm3 (0-0.3); Eosinophils Percent Auto 1.3 % (0-4.4); Hematocrit 38.7 % (37.0-47.0); Hemoglobin 12.3 g/dL (12.0-15.0); Immature Granulocyte Absolute 0.03 K/mm3 (0.00-0.031); Immature Granulocyte Percent A 0.5 % (0-0.5); Lymphocytes Absolute Auto 1.79 K/mm3 (0.9-3.2); Lymphocytes Percent Auto 28.7 % (18.3-44.2); Mean Corpuscular HGB Conc 31.8 g/dl (32-36); Mean Corpuscular Hemoglobin 29.2 pg (26-34); Mean Corpuscular Volume 91.9 fl (80-100); Mean Platelet Volume 11.2 fl (7.4-10.4); Monocytes Absolute Auto 0.5 K/mm3 (0.1-0.6); Monocytes Percent Auto 8.7 % (2.6-8.5); Neutrophils Absolute Auto 3.8 K/mm3 (1.3-6.7); Neutrophils Percent Auto 60.3 % (45.5-73.1); Platelet Count Result 167 k/mm3 (150-375); Red Blood Count 4.21 M/mm3 (4.2-5.4); Red Cell Distribution Width 13.3 % (11.5-14.5); White Blood Count 6.2 K/mm3 (4.5-10.0)
[2022-03-17 07:15] LABS: Alanine Aminotransferase 18 U/L (6-35); Albumin Level 3.9 g/dL (3.5-5.1); Alkaline Phosphatase 43 U/L (38-126); Anion Gap 6 mmol/L (8-16); Aspartate Amino Transferase 22 U/L (14-36); Bilirubin,Total 0.3 mg/dL (0.2-1.3); Blood Urea Nitrogen 13 mg/dL (7-17); Calcium 8.3 mg/dL (8.4-10.2); Carbon Dioxide 29 mmol/L (22-30); Chloride 105 mmol/L (98-107); Estimated CRCL calculation 54 ml/min; Estimated Glomerular Filt Rate 51; Glucose 98 mg/dL (65-110); Magnesium 2.2 mg/dL (1.6-2.3); Potassium 3.9 mmol/L (3.4-5.0); Sodium 140 mmol/L (137-145)
[2022-03-17 08:00] VITALS: PULSE 69; RESP 16; O2SAT 95
--- NOTE | 2022-03-17 08:14 | PC.NURSE ---
duloxetine 20 mg po refused pt states weaning off of medication at this time. Scheduled to discharge today per provider
--- NOTE | 2022-03-17 08:53 | PM.DS ---
DS: Admitting Diagnosis Discharge Date 03/17/2022 Admitting Diagnosis Diverticulitis with abscess formation. DS: Discharge Diagnosis Discharge Diagnosis (1) Diverticulitis of intestine with abscess: Code(s): K57.80 - Diverticulitis of intestine, part unspecified, with perforation and abscess without bleeding Status: Acute Assessment and Plan: - Pt with interval improvement in her condition and is stable for discharge at this time. She will follow up with Gen Sgy in 2-3 weeks, and GI in 6-8 weeks to have a colonoscopy. She is being sent home today with prescriptions for Cipro and Flagyl for a four day course and she also is advised to follow a Diverticulitis and Low Fiber diet. Both instructions are included for her. (2) Rectal Pain: Code(s): K62.89 - Other specified diseases of anus and rectum Status: Resolved Assessment and Plan: - resolved (3) Pelvic pain: Code(s): R10.2 - Pelvic and perineal pain Status: Resolved Assessment and Plan: - Resolved (4) Nausea alone: Code(s): R11.0 - Nausea Status: Resolved Assessment and Plan: - resolved (5) Thyroid disease: Code(s): E07.9 - Disorder of thyroid, unspecified Status: Chronic Assessment and Plan: - Continue home medication. (6) Phlebitis: Code(s): I80.9 - Phlebitis and thrombophlebitis of unspecified site Status: Resolved Assessment and Plan: - Redness of area has resolved and there is no palpable cord. DS: Summary Hospital Course Reason for hospitalization: Abdominal pain revealing Diverticulitis with abscess. Hospital Course: This pleasant 61-year-old female with significant past medical history of Ivanna's thyroiditis, depression, diverticulosis, previous bouts of diverticulitis presented to the emergency room on 03/13/2022 complaints of acute abdominal pain the low the epigastric region that radiated. Assessment emergency room time demonstrated no acute sigmoid diverticulitis with a small peridiverticular abscess. She was admitted to the hospital for hospitalist management and both GI service as well as General surgery were consult. Patient remained in the hospital with treatment of Zosyn therapy, p.r.n. antiemetics. Pain medications and has had a favorable hospital course. Today she denies any pain, nausea, vomiting and she had no diarrhea within the past 24 hours. Her vital signs are stable and her labs are unremarkable at this time. All specialties are in agreement that she is stable for discharge today will be sent home with prescriptions for oral Flagyl as well as oral Cipro. She will be following up with General surgery, Dr. Coleman in 2-3 weeks in his office as well as GI Dr. Espinosa in 6-8 weeks for follow-up colonoscopy. Patient also advised to follow-up primary care physician within the next few days and to follow a low-fiber diet as well as diverticulitis diet. Patient is agreeable this plan of care and verbalized full understanding. Status at Discharge Functional status at discharge: independent ambulation Overall status at discharge: patient is back to baseline Time Spent with Patient Time attestation: Total time spent providing and/or coordinating discharge services: Time spent: Greater than 30 minutes Specific discharge activities: Explanation objective findings, plan of care and discharge orders With follow-up. Exam Const: General: comfortable and no acute distress HENMT: Mouth: Yes moist mucous membranes Eyes: General: appearance normal, both eyes and all related structures Sclera: sclerae normal and normal sclerae Pupils: Equal, round and reactive pupils present EOM: EOMs intact bilaterally Neck: Neck: supple and no JVD Thyroid: thyroid normal Carotids: no bruits Lymphatic: lymphadenopathy not noted Resp: Effort & Inspection: normal respiratory effort Auscultation: clear to auscultation bilaterally Cardio: Rate: r
--- NOTE | 2022-03-17 09:42 | PM.PNGS ---
Progress Note: A&P Assessment and Plan (1) Diverticulitis of intestine with abscess: Code(s): K57.80 - Diverticulitis of intestine, part unspecified, with perforation and abscess without bleeding Status: Acute Assessment and Plan: continues to improve. Discussed with hospitalist. Okay to discharge on oral antibiotics to complete 7 day course. She will be on a low-fiber diet. I will see her in 2 weeks in the office. She will be scheduling a colonoscopy with Dr. Espinosa in about 6 weeks. Subjective Subjective Date/Time Seen: 03/17/22 09:42 Patient reports: feels better, pain is less ( no abdominal or pelvic pain), tolerating a regular diet ( tolerating low-fiber diet without difficulty) and afebrile Review of Systems Review of Systems: All systems reviewed & are unremarkable except as noted in HPI and below Constitutional: Constitutional: Denies body ache(s), Denies chills, Denies fever(s), Denies headache(s), Reports increased appetite and Denies night sweats Cardiovascular: Cardiovascular: Denies chest pain and Denies dyspnea Respiratory: Respiratory: Denies cough and Denies dyspnea Gastrointestinal: Gastrointestinal: Reports as per HPI, Denies abdominal pain, Denies heartburn, Denies diarrhea and Denies nausea Exam Const: General: comfortable and no acute distress; No confusion GI: Inspection: non-distended GI Palp: Yes Soft to palpation, No Tenderness to palpation present (GI), No Guarding due to palpation present (GI) and No Rebound tenderness present Auscultation: normal bowel sounds Neuro: General: patient oriented x3, no focal motor deficits and No confusion Extrem: General: no calf tenderness and no edema Psych: Affect: normal affect Insight: Good insight present (Psych) Judgement: Good judgement present (Psych) Objective Data Vital Signs Vital Signs: Vital Signs - 24 hr 03/16/22 09:46 03/16/22 14:00 03/16/22 21:39 Temperature 36.3 C L 36.7 C Pulse Rate 57 L 62 Respiratory Rate 18 16 Blood Pressure 115/58 L 123/69 Pulse Oximetry 98 100 98 Oxygen Delivery Room Air 03/16/22 20:00 03/17/22 05:28 03/17/22 08:00 Temperature 36.4 C Pulse Rate 62 69 69 Respiratory Rate 16 16 16 Blood Pressure 131/75 Pulse Oximetry 98 95 95 Oxygen Delivery Room Air Room Air Intake/Output Intake/Output: Intake & Output 03/14/22 03/15/22 03/16/22 03/17/22 23:59 23:59 23:59 23:59 Intake Total 2370 2520 1770 990 Output Total 1800 Balance 570 2520 1770 990 Meds/Results Medications: Active Medications Generic Name Dose Route Start Last Admin Trade Name Freq PRN Reason Stop Dose Admin Acetaminophen 650 mg 03/13/22 21:05 Acetaminophen 325 Mg Tablet PO Q4H PRN Mild Pain (1-3) or Fever Hydrocodone Bitart/Acetaminophen 1 tab 03/13/22 21:05 Hydrocodone/Acetaminophen (*Crx) 5-325 Mg Tablet PO Q4H PRN Pain Rated 4-6 Duloxetine HCl 20 mg 03/14/22 09:00 03/17/22 08:13 Duloxetine Hcl 20 Mg Capsule.Dr PO Not Given DAILY MAICOL Enoxaparin Sodium 40 mg 03/15/22 09:00 03/17/22 08:12 Enoxaparin 40 Mg/0.4 Ml Syringe SUB-Q Not Given DAILY MAICOL Piperacillin Sod/Tazobactam 100 mls @ 200 mls/hr 03/14/22 06:00 03/17/22 05:41 Sod 4.5 gm/ Sodium Chloride IVPB 200 mls/hr Q8HR MAICOL Administration Mirtazapine 7.5 mg 03/14/22 21:00 03/16/22 20:38 Mirtazapine 7.5 Mg Tablet PO 7.5 mg HS MAICOL Administration Morphine Sulfate 4 mg 03/13/22 21:05 Morphine Sulfate (*Crx) 4 Mg/Ml Inj IV PUSH Q2H PRN Pain Rated 7-10 Ondansetron HCl 4 mg 03/13/22 21:05 Ondansetron Inj 4 Mg/2 Ml Vial IV PUSH Q4H PRN Nausea Thyroid 90 mg 03/14/22 07:30 03/17/22 05:42 Thyroid 30 Mg Tablet PO 90 mg DAILY@0630 MAICOL Administration Radiology Results: ITS Impressions Abdomen/Pelvis CT 03/13/22 20:16 IMPRESSION: 1. Acute sigmoid diverticulitis with small peridiverticular abscess measuring 2
== END 2022-03-17 09:30 | disposition home or self-care (01) | DRG 392 ==
LOC: ANHED 21:11 → ANH3MEDSUR 22:43
PROVIDERS: Admitting Provider Internal Medicine; Emergency Provider Emergency Medicine; PCP Family Medicine; Visit Provider Nurse Practitioner Adult Health
DX: K57.20 Diverticulitis of large intestine with perforation and abscess without bleeding (principal); T80.1XXA Vascular complications following infusion, transfusion and therapeutic injection, initial encounter; I80.8 Phlebitis and thrombophlebitis of other sites; E07.9 Disorder of thyroid, unspecified; F32.A Depression, unspecified; F41.9 Anxiety disorder, unspecified; M81.0 Age-related osteoporosis without current pathological fracture; R10.2 Pelvic and perineal pain; Z20.822 Contact with and (suspected) exposure to COVID-19
CPT/HCPCS: 36415; 74177; 80053; 81003; 81025; 83690; 83735; 85025; 96365; 96374; 96376; 99285; A9270; C9803; G0378; J2543; Q9967; U0003; U0005

== ENCOUNTER 2022-03-20 16:04 | Outpatient (CLI) | payer MEDICARE, MEDICAID, SELFPAY ==
--- NOTE | ~2022-03-20 | US_ITS ---
EXAMINATION: US pelvic complete w TV DATE: 03/20/2022 17:15 INDICATION: 3 weeks of pelvic pain including TECHNIQUE: Multiple transabdominal and endovaginal sonographic images of the pelvis were obtained. COMPARISON: None. FINDINGS: The uterus measures 8.4 x 3.6 x 5.5 cm. The endometrial complex measures 5 mm in thickness inclusive of a minimal amount of fluid within the endometrial canal measuring up to 1 mm in thickness. There i s additional small amount of fluid measuring up to 1-2 mm in thickness within the endocervical canal. 7 mm hypoechoic subserosal fibroid at the uterine fundus. There is a 1.2 x 1.2 x 1.0 cm hypoechoic r egion with posterior acoustic enhancement situated suggesting a complex fluid collection located neda g the junction of the cervix and lower uterine segment. There is in additional 3.4 x 2.6 x 1.4 cm hyp oechoic region situated between the left side of the lower uterine segment and a loop of bowel which was labeled with the associate broker as the left ovary. Correlation with prior CT however demonstrates a similar hypodense region situated between the between the lower uterine segment and the adjacent sigm oid colon where there are changes of diverticulitis which suggests this represents either residual sm all abscess or developing fistulous tract. Small echogenic and shadowing focus within the hypoechoic region likely corresponds to one of the small phleboliths seen in this region on the prior CT. The le ft ovary is not definitively visualized. The right ovary measures 2.4 x 1.6 x 1.4 cm. There is a mini mal amount of anechoic free fluid in the cul-de-sac. There is normal vascular flow in the ovaries. Th ere is no free fluid in the pelvis. IMPRESSION: 1. 3.4 x 2.6 x 1.4 cm hypoechoic region situated between the left side of the lower uterine segment a nd a loop of bowel. Correlation with prior CT performed 03/13/2022 suggests this may present a residua l small abscess or developing fistulous tract between the site of sigmoid diverticulitis in the uteru s. 2. Separate indeterminate 1.2 x 1.2 x 1.0 cm hypoechoic region with posterior acoustic enhancement smyth ggesting a complex fluid collection potentially abscess also along the junction of the uterus and low er uterine segment which without evident correlate on the prior CT. For both lesions would consider f urther evaluation with either repeat contrast-enhanced CT or MRI of the pelvis. Reviewed, dictated and finalized at location A. IMPRESSION: 1. 3.4 x 2.6 x 1.4 cm hypoechoic region situated between the left side of the l ower uterine segment and a loop of bowel. Correlation with prior CT performed suggests this may present a residual small abscess or developing fistu lous tract between the site of sigmoid diverticulitis in the uterus. 2. Separate indeterminate 1.2 x 1.2 x 1.0 cm hypoechoic region with posterior a coustic enhancement suggesting a complex fluid collection potentially abscess a lso along the junction of the uterus and lower uterine segment which without ev ident correlate on the prior CT. For both lesions would consider further evalua tion with either repeat contrast-enhanced CT or MRI of the pelvis.
== END 2022-03-20 16:05 | disposition home or self-care (01) ==
PROVIDERS: PCP Family Medicine; Visit Provider Chiropractor
DX: R10.2 Pelvic and perineal pain (principal); R93.5 Abnormal findings on diagnostic imaging of other abdominal regions, including retroperitoneum
CPT/HCPCS: 76830; 76856

== ENCOUNTER 2022-03-27 16:09 | Outpatient (CLI) | payer MEDICARE, MEDICAID, SELFPAY ==
--- NOTE | ~2022-03-27 | CT_ITS ---
EXAMINATION: CT abdomen pelvis w con DATE: 03/27/2022 17:08 INDICATION: Diverticulitis TECHNIQUE: Computed tomography (CT) of the abdomen and pelvis was performed without intravenous contr ast. The dose-length product was 722.12 mGy-cm. Automated exposure control and iterative reconstructi on technique were employed. COMPARISON: CT dated 03/13/2022. FINDINGS: Lung bases are unremarkable. Small pericardial effusion. Borderline heart size. Trace pleur al effusions. The liver, spleen, pancreas, adrenal glands and kidneys are unremarkable. Gallbladder is present. The re are colonic diverticula. There is mild inflammatory change in the left pelvis, suspicious for acut e diverticulitis. No evidence for perforation or abscess. No free air. IMPRESSION: 1. Mild acute uncomplicated sigmoid diverticulitis. 2: Trace pericardial and bilateral pleural effusions. Reviewed, dictated and finalized at location A.
== END 2022-03-27 16:10 | disposition home or self-care (01) ==
PROVIDERS: PCP Family Medicine; Visit Provider Internal Medicine Gastroenterology
DX: K57.92 Diverticulitis of intestine, part unspecified, without perforation or abscess without bleeding (principal); J90 Pleural effusion, not elsewhere classified
CPT/HCPCS: 74177; Q9967

== ENCOUNTER 2022-04-24 15:40 | Outpatient (CLI) | payer MEDICARE, MEDICAID, SELFPAY ==
[2022-04-24 17:56] LABS: Free T4 Free Thyroxine 0.93 ng/mL (0.78-2.19)
[2022-04-24 18:09] LABS: Alanine Aminotransferase 20 U/L (6-35); Albumin Level 4.3 g/dL (3.5-5.1); Alkaline Phosphatase 43 U/L (38-126); Anion Gap 11 mmol/L (8-16); Aspartate Amino Transferase 29 U/L (14-36); Bilirubin,Total 0.4 mg/dL (0.2-1.3); Blood Urea Nitrogen 16 mg/dL (7-17); Calcium 9.4 mg/dL (8.4-10.2); Carbon Dioxide 20 mmol/L (22-30); Chloride 108 mmol/L (98-107); Estimated Glomerular Filt Rate > 60; Glucose 105 mg/dL (65-110); Potassium 4.3 mmol/L (3.4-5.0); Sodium 139 mmol/L (137-145)
[2022-04-24 18:39] LABS: Thyroid Stimulating Hormone 0.131 uIU/mL (0.465-4.680)
[2022-04-24 19:15] LABS: Folic Acid 15.2 ng/mL (2.76->20)
[2022-04-27 02:46] LABS: Thyroid Peroxidase Antibodies 212 IU/mL (<9)
[2022-04-27 11:52] LABS: Adrenocorticotropic Hormone 15 pg/mL (6-50)
[2022-04-27 15:41] LABS: Prolactin 10.5 ng/mL (***); Triiodothyronine T3 Free 3.8 pg/mL (2.3-4.2)
[2022-05-11 14:45] LABS: IGFBP-1 <5
== END 2022-04-24 15:41 | disposition home or self-care (01) ==
PROVIDERS: PCP Family Medicine; Referring Provider Internal Medicine Endocrinology, Diabetes & Metabolism; Visit Provider Internal Medicine Endocrinology, Diabetes & Metabolism
DX: D35.2 Benign neoplasm of pituitary gland (principal)
CPT/HCPCS: 36415; 80053; 82024; 82607; 82746; 84146; 84439; 84443; 84481; 86376

== ENCOUNTER 2022-05-08 08:39 | Outpatient (CLI) | payer MEDICARE, MEDICAID, SELFPAY | END 2022-05-08 08:40 | disposition home or self-care (01) | LOC: ANHLAB 08:42 | PROVIDERS: PCP Family Medicine; Visit Provider Internal Medicine Endocrinology, Diabetes & Metabolism | DX: D35.2 Benign neoplasm of pituitary gland (principal) | CPT/HCPCS: 36415; 82533 ==

== ENCOUNTER 2022-05-18 01:09 | Day surgery (SDC) | payer MEDICARE, MEDICAID, SELFPAY ==
[2022-05-11 12:43] VITALS: BMI 30.3
--- NOTE | 2022-05-11 12:54 | PC.NURSE ---
Report to the Outpatient Waiting Room, entrance under the green pavilion located off [facility], at time 0830 on date 05/18/22. OR Time: 1030. Time changes happen often and if your time is changed the preop area will call you the afternoon before. - You and your visitor will be asked to self-screen and do not enter if you have any COVID symptoms. - Only one visitor and NO children visitors are allowed at this time. - The patient visitor is requested to leave or wait in car when not with patient due to restrictions. - A mask is required within the hospital. Patients may have clear liquids (water, carbonated beverages, clear teas, apple juice) until 3 hours prior to surgery with a maximum of 20 ounces. - No food from midnight until time of surgery Take the following medications with a SIP of water the morning of surgery: CYMBALTA, PROPRANOLOL, THYROID Medications to discontinue per physician: N/A Date to take last dose: N/A Please no make-up, nail ugandan, hairspray, perfume, deodorant, or body powder the day of surgery. No jewelry (including any body piercings) or valuables the day of surgery, leave them at home. Please take a shower or bath the night before, or the morning of, surgery with an antibacterial soap. Wear comfortable, loose fitting clothing. - Jewelry must be removed prior to entering the operating room. Rings and piercings that are not removed may be cut off. - The hospital will not accept responsibility for valuables. - Please leave all valuables, including medications, at home the day of surgery. If you are going home after surgery, a licensed milk truck driver must drive you home. - NO public transportation without another adult. - We recommend that an adult stay with you for 24 hours following discharge. - We also recommend that you do not drive, make important decision, drink alcoholic beverages, or take any drugs that were not prescribed by your health care provider for at least 24 hours after your discharge time. Follow any additional instructions given to you from your surgeon. If you or anyone in your household have experienced Covid symptoms in the past week, please notify your surgeon or the nurse liaison at the phone number below for possible testing. Telephone instructions given to PT - ANNA DAVIS and asked if any additional questions and then verbalized understanding. Patient advised to call surgeon office or pre surgery nurse liaison [phone] if any additional questions.
--- NOTE | 2022-05-18 08:04 | WPDHPUPDATE1 ---
History and Physical Update Update Date/Time: 05/18/22 08:04 History and Physical has been reviewed, including an updated exam of the patient. There are NO changes in the patient's condition. Risks, benefits, and alternatives have been discussed and questions answered. Patient agrees to proceed with procedure.
--- NOTE | 2022-05-18 08:04 | PM.HPGS ---
History of Present Illness History of Present Illness Consent: Risks, benefits, and alternatives have been discussed and questions answered. Patient agrees to proceed with procedure. Chief complaint: Thickened Endomtrium Narrative: Yuki Nino is a 61 year old female who was admitted for GI abscesses and antibiotic treatment. The patient had a CT scan and pelvic ultrasound which showed a thickened endometrium with fluid in the cavity. Patient denies vaginal bleeding. It was recommended to further workup with D&C hysteroscopy. Risks of infection, bleeding, and perforation were reviewed. Possible pathology was discussed. Patient voices understanding and agrees to proceed. Review of Systems Review of Systems: not repeated day of surgery; patient states no changes in status PMFSH Past Medical History Medical History (Updated 05/18/22 @ 08:26 by Reba Zamorano MD) Anxiety Bloating Depression History of benign breast biopsy History of posttraumatic stress disorder (PTSD) Nausea alone Rectal Pain Thyroid disease Hypothyroid Surgical History Surgical History (Updated 05/18/22 @ 08:25 by Reba Zamorano MD) Previous section X2 Family History Family History Father Family history of ulcerative colitis Malignant neoplasm of prostate Diabetes mellitus Acute myocardial infarction Depression Mother Family history of pancreatic cancer Pancreatitis Other Family history of chronic obstructive pulmonary disease Family history of gastrointestinal disorder Family history of primary malignant neoplasm of liver Social History Social History Smoking status: Never smoker Alcohol intake: never Alcohol use details: social Substance use: never Substance use type: does not use Living arrangements: with family Gender identity (if verbalized by the patient): Female Spiritual care concerns: No Meds Home Medications and Allergies Home Medications Medication Instructions Recorded Confirmed Type duloxetine 20 mg capsule,delayed 5 mg PO DAILY 03/13/22 05/11/22 History release (Cymbalta) thyroid (pork) 90 mg tablet 90 mg PO DAILY 03/13/22 05/11/22 History ([place] Thyroid) conj estrogen-medroxyprogesterone 1 tablet PO DAILY 04/15/22 05/11/22 History 0.3 mg-1.5 mg tablet (Prempro) propranolol 10 mg tablet 5 mg PO DAILY 05/11/22 05/11/22 History Allergies Allergy/AdvReac Type Severity Reaction Status Date / Time No Known Allergies Allergy Verified 05/11/22 12:37 Exam Const: General: healthy appearing and alert Orientation/consciousness: patient oriented x3 GI: GI Palp: Yes Soft to palpation, No Tenderness to palpation present (GI) and No Palpable mass present : External Female Exam: normal external appearance Speculum Exam - Vagina: normal appearance of the vagina and normal vaginal discharge Speculum Exam - Cervix: normal appearance of the cervix Bimanual exam- vagina & uterus: uterine size normal and consistency normal Bimanual Exam- Adnexa, other: normal adnexae and No adnexal tenderness Neuro: General: patient oriented x3 Assessment and Plan Assessment and plan (1) Thickened endometrium: Code(s): R93.89 - Abnormal findings on diagnostic imaging of other specified body structures Status: Acute Assessment and Plan: Plan to proceed with D&C hysteroscopy
--- NOTE | 2022-05-18 09:02 | WPDANESEPPF ---
Anes - Initial Pre Proc Eval Procedure: Operation Date: 05/18/22 10:30 Proposed Procedures p Hysteroscopy with Dilation and Curettage - Reba Zamorano MD Date/Time: 05/18/22 09:02 Surgeon: Reba Zamorano MD Pre Op Diagnosis: Thickened Endomtrium Patient Data Age: 61 Gender: F Height: 1.66 m Weight: 83.91 kg Allergies Allergy/AdvReac Type Severity Reaction Status Date / Time No Known Allergies Allergy Verified 05/11/22 12:37 Home Medications Medication Instructions Recorded Confirmed Type duloxetine 20 mg capsule,delayed 5 mg PO DAILY 03/13/22 05/11/22 History release (Cymbalta) thyroid (pork) 90 mg tablet 90 mg PO DAILY 03/13/22 05/11/22 History ([place] Thyroid) conj estrogen-medroxyprogesterone 1 tablet PO DAILY 04/15/22 05/11/22 History 0.3 mg-1.5 mg tablet (Prempro) propranolol 10 mg tablet 5 mg PO DAILY 05/11/22 05/11/22 History Patient hx anesthesia problems: none Family hx anesthesia problems: none Results Review: All pre-operative results and documents have been reviewed as part of the pre-operative evaluation. [facility] Past Medical History Medical History Anxiety Crohn's disease Depression History of posttraumatic stress disorder (PTSD) Prediabetes Thyroid disease Hypothyroid Surgical History Surgical History Previous section X2 Family History Family History Father Family history of ulcerative colitis Malignant neoplasm of prostate Diabetes mellitus Acute myocardial infarction Depression Mother Family history of pancreatic cancer Pancreatitis Other Family history of chronic obstructive pulmonary disease Family history of gastrointestinal disorder Family history of primary malignant neoplasm of liver Social History Social History Smoking status: Never smoker Alcohol intake: never Alcohol use details: social Substance use: never Substance use type: does not use Living arrangements: with family Gender identity (if verbalized by the patient): Female Spiritual care concerns: No Anes - Eval Final PreProcedure Day of Procedure 05/18/22 09:02 Patient weight: overweight Heart: regular rate and rhythm Lungs: clear to auscultation Airway: Mallampati scale class II Neurological: alert and oriented Last oral intake: >/= 8 hours ASA classification: III Emergent: no Anesthetic plan: proceed Anesthesia type and monitoring: general GIVS and standard monitoring Results Review: All pre-operative results and documents have been reviewed as part of the pre-operative evaluation. Informed Consent: The patient's anesthetic plan and its attendant risks and benefits were discussed with the patient/family/POA. Questions were solicited and answers provided to the satisfaction of the patient/family/POA.
[2022-05-18] MEDS: LACTATED RINGERS 1,000 ML 30 ML IV CONT (09:15)
[2022-05-18] MEDS: ACETAMINOPHEN 500 MG TABLET 1000 MG PO (09:15)
[2022-05-18 09:39] VITALS: BP 117/69; PULSE 66; RESP 14; TEMP 36.5; O2SAT 100
[2022-05-18] MEDS: LIDOCAINE HCL 1% PF 30 ML VIAL 10 ML INFILTRATE (10:32)
--- NOTE | 2022-05-18 10:44 | P.OP_ITS ---
Procedure Note - Detailed Date of Procedure 05/18/22 Pre-op Diagnosis Thickened Endomtrium Post-op Diagnosis Same (Plus postmenopausal bleeding) Procedure Performed D&C hysteroscopy with MyoSure resection of polyp Surgeon Reba Zamorano MD Anesthesia MAC and Local Findings There is old blood at the cervix. Uterus sounds to 10cm there is a posterior right polyp. There is old blood in the cavity Description of Procedure The patient was taken to the operating and placed under anesthesia in the dorsal lithotomy position. She was prepped and draped in usual sterile fashion. [place] speculum was placed in the vagina and old blood is noted in the cavity. The cervix grasped on the anterior lip with a tenaculum. The cervix is injected in each quadrant with 1% lidocaine. The uterus is sounded to 10cm. The cervix is serially dilated with [place] to an 8. The diagnostic hysteroscope was placed with the above-stated findings. The MyoSure device is opened and placed and the polyp was removed in its entirety under direct visualization. The hysteroscope was then removed and the sharp curette used to curette the endometrium until a good uterine cry was noted in all areas. All instruments are removed and the patient awakened from anesthesia and taken to recovery in stable condition. Sponge, needle, and instrument counts are correct per the OR staff. Estimated Blood Loss 5 Drains No Packing No Pathology Yes (Endometrial shavings and curettings) Complications No immediate complications Condition Stable Disposition PACU
[2022-05-18 10:47] VITALS: BP 144/89; PULSE 73; RESP 16; O2SAT 90
[2022-05-18 11:13] VITALS: BP 117/78; PULSE 54; RESP 16
[2022-05-18 11:45] VITALS: BP 133/65; PULSE 63; RESP 16
[2022-05-18 12:10] VITALS: BP 148/70; PULSE 62; RESP 16
== END 2022-05-18 12:22 | disposition home or self-care (01) ==
PROVIDERS: PCP Family Medicine; Visit Provider Obstetrics & Gynecology Gynecology
PROC: 0U5B8ZZ Destruction of Endometrium, Via Natural or Artificial Opening Endoscopic (ICD-10-PCS; CPT 58563; principal; 2022-05-18 10:30)
DX: N84.0 Polyp of corpus uteri (principal); E03.9 Hypothyroidism, unspecified; F41.9 Anxiety disorder, unspecified; F32.A Depression, unspecified; R73.03 Prediabetes; K50.90 Crohn's disease, unspecified, without complications
CPT/HCPCS: 58558; 88305; A9270; J1100; J2250; J2405; J2704; J3010; J7030; J7120

== ENCOUNTER 2022-11-11 15:28 | Outpatient (CLI) | payer MEDICARE, MEDICAID, SELFPAY ==
--- NOTE | ~2022-11-11 | XR_ITS ---
EXAMINATION: XR hip BI 2V w AP pelvis DATE: 11/11/2022 16:01 INDICATION: Bilateral hip pain TECHNIQUE: AP view the pelvis and two views of each hip were obtained. COMPARISON: CT, 03/27/2022 FINDINGS: Bone alignment is normal. There is no fracture. There is mild osteoarthritis of the hips. P hleboliths are noted in the pelvis. IMPRESSION: 1. Mild osteoarthritis of the hips. Reviewed, dictated and finalized at location F.
--- NOTE | ~2022-11-11 | XR_ITS ---
EXAMINATION:XR_CERV2-3V_CR DATE: 11/11/2022 16:00 INDICATION: Neck pain TECHNIQUE: AP, lateral, lateral swimmers and odontoid views of the cervical spine are provided. COMPARISON: None FINDINGS: Alignment is normal. The odontoid process is intact. No fracture is identified. The vertebr al body heights are maintained. There is moderate loss of intervertebral disc space height at C5-6 an d C6-7. Degenerative osteophytes project from the anterior endplates of multiple vertebral bodies. Th ere is multilevel moderate facet and uncovertebral joint osteoarthritis. Prevertebral soft tissues ar e normal. IMPRESSION: 1. Moderate cervical spondylosis without acute findings. Reviewed, dictated and finalized at location F.
== END 2022-11-11 15:29 | disposition home or self-care (01) ==
PROVIDERS: PCP Family Medicine; Visit Provider Family Medicine
DX: M16.0 Bilateral primary osteoarthritis of hip (principal); M47.892 Other spondylosis, cervical region
CPT/HCPCS: 72040; 73521

== ENCOUNTER 2022-11-19 12:47 | Outpatient (CLI) | payer MEDICARE, MEDICAID, SELFPAY ==
--- NOTE | ~2022-11-19 | MR_ITS ---
EXAMINATION: MR lumbar spine wo con DATE: 11/19/2022 13:28 INDICATION: Lumbar spondylosis. TECHNIQUE: Magnetic resonance imaging (MRI) of the lumbar spine was performed without intravenous con trast. COMPARISON: None FINDINGS: There is 3 degrees dextrocurvature of thoracolumbar spine. Vertebral body heights are era l. There is a benign bone island in L1 vertebral body. There is severely decreased disc height at L5- S1 with endplate remodeling. The distal spinal cord signal intensity is normal. The conus medullaris is at L2-L3. The following disc levels are specifically discussed: L1-L2: The disc does not extend beyond the endplate margin. There is no facet joint osteoarthritis. T here is no neural foraminal stenosis. There is no central canal stenosis. L2-L3: The disc does not extend beyond the endplate margin. There is no facet joint osteoarthritis. T here is no neural foraminal stenosis. There is no central canal stenosis. L3-L4: The disc is bulging. There is moderate bilateral facet joint osteoarthritis. There is mild samm ateral neural foraminal stenosis. There is mild central canal stenosis. L4-L5: The disc is bulging and has an annular fissure. There is severe bilateral facet joint osteoart hritis. There is mild bilateral neural foraminal stenosis. There is mild central canal stenosis. L5-S1: This is bulging and has an annular fissure. There is moderate bilateral facet joint osteoarthr itis. There is mild bilateral neural foraminal stenosis. There is mild central canal stenosis. IMPRESSION: 1. Severe lower lumbar spondylosis. Reviewed, dictated and finalized at location A.
== END 2022-11-19 12:48 | disposition home or self-care (01) ==
PROVIDERS: PCP Family Medicine; Visit Provider Family Medicine
DX: M47.896 Other spondylosis, lumbar region (principal)
CPT/HCPCS: 72148

== ENCOUNTER 2022-12-07 10:00 | Outpatient (CLI) | payer MEDICARE, MEDICAID, SELFPAY ==
[2022-12-07 10:46] LABS: Alanine Aminotransferase 21 U/L (6-35); Albumin Level 4.5 g/dL (3.5-5.1); Alkaline Phosphatase 45 U/L (38-126); Anion Gap 5 mmol/L (8-16); Aspartate Amino Transferase 23 U/L (14-36); Bilirubin,Total 0.6 mg/dL (0.2-1.3); Blood Urea Nitrogen 13 mg/dL (7-17); Calcium 9.2 mg/dL (8.4-10.2); Carbon Dioxide 29 mmol/L (22-30); Chloride 104 mmol/L (98-107); Estimated Glomerular Filt Rate > 60; Glucose 106 mg/dL (65-110); Potassium 3.9 mmol/L (3.4-5.0); Sodium 138 mmol/L (137-145)
[2022-12-07 10:50] LABS: Hemoglobin A1C 5.5 % (<5.7)
[2022-12-07 11:12] LABS: Free T4 Free Thyroxine 1.13 ng/mL (0.78-2.19)
[2022-12-07 11:15] LABS: Thyroid Stimulating Hormone 0.156 uIU/mL (0.465-4.680)
[2022-12-10 13:27] LABS: Insulin Level Total 14.1 uIU/mL (<=19.6)
[2022-12-11 04:53] LABS: Triiodothyronine T3 Free 2.8 pg/mL (2.3-4.2)
== END 2022-12-07 10:01 | disposition home or self-care (01) ==
PROVIDERS: PCP Family Medicine; Visit Provider Internal Medicine Endocrinology, Diabetes & Metabolism
DX: R73.03 Prediabetes (principal); E03.9 Hypothyroidism, unspecified
CPT/HCPCS: 36415; 80053; 83036; 83525; 84439; 84443; 84481

== ENCOUNTER 2023-12-31 15:06 | Outpatient (CLI) | payer MEDICARE, MEDICAID, SELFPAY ==
--- NOTE | ~2023-12-31 | MM_ITS ---
EXAMINATION: MM screening mary BI w oc HISTORY: Screening mammogram TECHNIQUE: Craniocaudal and mediolateral oblique 3-D tomosynthesis images were obtained and synthetic 2-D images were generated. CAD analysis was submitted and interpreted. COMPARISON: 02/22/2022 diagnostic bilateral mammogram and Limited left breast ultrasound, reported neg ative 04/25/2019 bilateral screening mammogram BREAST PARENCHYMAL COMPOSITION: There are scattered areas of fibroglandular density. FINDINGS: There is no evidence of suspicious mass, calcification, or architectural distortion to sugg est malignancy in either breast. There has been no suspicious interval change. IMPRESSION: 1. No mammographic evidence of malignancy. 2. Recommend routine screening mammography in one year. BI-RADS Category 1: Negative Reviewed, dictated and finalized at location B.
== END 2023-12-31 15:07 | disposition home or self-care (01) ==
PROVIDERS: PCP Family Medicine; Visit Provider Family Medicine
DX: Z12.31 Encounter for screening mammogram for malignant neoplasm of breast (principal)
CPT/HCPCS: 77063; 77067

== ENCOUNTER 2024-03-17 12:54 | Outpatient (CLI) | payer MEDICARE, MEDICAID, SELFPAY ==
--- NOTE | 2024-03-21 15:02 | WPDHOLTEREM ---
Holter/Event Monitor Holter/Event Monitor Date of procedure: 03/17/24 Holter/Event Procedure: 48 Hr Holter Monitor Indications: Palpitations Conclusion: 1. 48 hour holter monitor on 03/17/24. 2. Underlying rhythm is sinus rhythm. HR range 50-122 bpm; average HR 74 bpm. 3. There are 18 premature supraventricular complexes, 1 supraventricular couplet and 3 supraventricular triplet. No supraventricular tachycardia. 4. No premature ventricular complexes. No ventricular tachycardia. 5. No sinoatrial or atrioventricular blocks. No significant pauses greater than 2 seconds. 6. No symptoms available for correlation.
== END 2024-03-17 12:55 | disposition home or self-care (01) ==
LOC: ANHCARD 13:00
PROVIDERS: PCP Family Medicine; Visit Provider Family Medicine
DX: R00.2 Palpitations (principal)
CPT/HCPCS: 93225; 93226

== ENCOUNTER 2024-03-20 13:33 | Outpatient (CLI) | payer MEDICARE, MEDICAID, SELFPAY ==
--- NOTE | ~2024-03-20 | US_ITS ---
EXAMINATION: US venous doppler [facility] DATE: 03/20/2024 14:34 INDICATION: Left lower limb pain. TECHNIQUE: Grayscale ultrasound images without and with compression and Doppler ultrasound images of the left lower extremity veins were obtained. COMPARISON: None. FINDINGS: The visualized portions of left common femoral vein, profunda (deep) femoral vein, femoral vein, popl iteal vein, peroneal veins, posterior tibial veins, and greater saphenous vein outflow are patent. Th ere is a varicose vein inferomedial to the knee. IMPRESSION: 1. No deep venous thrombosis. 2. Varicose vein inferomedial to the knee. Reviewed, dictated and finalized at location A.
== END 2024-03-20 13:34 | disposition home or self-care (01) ==
LOC: ANHIMG 13:38
DX: I86.8 Varicose veins of other specified sites (principal)
CPT/HCPCS: 93971

== ENCOUNTER 2024-03-23 10:42 | Outpatient (CLI) | payer MEDICARE, MEDICAID, SELFPAY ==
--- NOTE | ~2024-03-23 | MR_ITS ---
EXAMINATION: MR brain/brain stem wo/w con DATE: 03/23/2024 12:01 INDICATION: Benign neoplasm of pituitary gland. TECHNIQUE: Magnetic resonance imaging (MRI) of the brain and brainstem was performed without and with 19 mL MultiHance intravenous contrast. COMPARISON: Brain MRI 11/10/2021, 12/23/2020 FINDINGS: The pituitary is normal in size with height of 7 mm. There is a 6 mm hypoenhancing mass in the pituitary posteriorly. There is no acute ischemic infarct or intracranial hemorrhage. The ventric les are normal in size. There is mucosal thickening in the ethmoid sinuses. The orbits are normal. Th e mastoid air cells are normal. IMPRESSION: 1. 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 Reviewed, dictated and finalized at location A.
== END 2024-03-23 10:43 | disposition home or self-care (01) ==
PROVIDERS: PCP Family Medicine; Visit Provider Internal Medicine Endocrinology, Diabetes & Metabolism
DX: D35.2 Benign neoplasm of pituitary gland (principal)
CPT/HCPCS: 70553; A9577

== ENCOUNTER 2024-03-29 13:38 | Outpatient (CLI) | payer MEDICARE, MEDICAID, SELFPAY ==
--- NOTE | 2024-03-29 14:30 | NEURO_ITS ---
Impression: # Complains of left upper extremity numbness. # Normal Nerve Conduction Study; No Carpal Tunnel Syndrome or ulnar neuropathy. # Normal needle/EMG exam. # Clinical correlation recommended. Nerve Conduction Studies Anti Sensory Summary Table Stim Site NR Peak (ms) P-T Amp (?V) Site1 Site2 Delta-P (ms) Dist (cm) Jacob (m/s) Left Median Anti Sensory (2-3nd Digit) Wrist 2.7 75.7 Wrist 2-3nd Digit 2.7 14.0 52 Wrist 2.6 57.3 Wrist 2-3nd Digit 2.7 14.0 52 Left Radial Anti Sensory (Base 1st Digit) Wrist 1.8 33.1 Wrist Base 1st Digit 1.8 0.0 Left Ulnar Anti Sensory (5th Digit) Wrist 2.1 68.3 Wrist 5th Digit 2.1 14.0 67 Motor Summary Table Stim Site NR Onset (ms) O-P Amp (mV) Site1 Site2 Delta-0 (ms) Dist (cm) Jacob (m/s) Left Median Motor (Abd Poll Brev) Wrist 2.7 3.3 Elbow Wrist 4.6 29.0 63 Elbow 7.3 1.6 Left Ulnar Motor (Abd Dig Minimi) Wrist 2.0 7.7 A Elbow Wrist 5.0 30.0 60 A Elbow 7.0 5.2 F Wave Studies NR F-Lat (ms) L-R F-Lat (ms) Left Median (Mrkrs) (Abd Poll Brev) 27.72 Left Ulnar (Mrkrs) (Abd Dig Min) 26.04 EMG Side Muscle Nerve Root Ins Act Fibs Amp Dur Recrt Comment Left 1stDorInt Ulnar C8-T1 Nml Nml Nml Nml Nml Left Ext Indicis Radial (Post Int) C7-8 Nml Nml Nml Nml Nml Left Ext Digitorum Radial (Post Int) C7-8 Nml Nml Nml Nml Nml Left BrachioRad Radial C5-6 Nml Nml Nml Nml Nml Left PronatorTeres Median C6-7 Nml Nml Nml Nml Nml Left Abd Poll Brev Median C8-T1 Nml Nml Nml Nml Nml Left ABD Dig Min Ulnar C8-T1 Nml Nml Nml Nml Nml MTDD
== END 2024-03-29 13:39 | disposition home or self-care (01) ==
LOC: ANHNEURO 13:40
PROVIDERS: PCP Family Medicine; Visit Provider Nurse Practitioner Family
DX: R20.2 Paresthesia of skin (principal)
CPT/HCPCS: 95886; 95909

== ENCOUNTER 2024-04-13 08:55 | Outpatient (CLI) | payer MEDICARE, MEDICAID, SELFPAY ==
[2024-04-13 10:32] LABS: Basophils Percent Auto 0.3 % (0.2-1.2); Eosinophils Absolute Auto 0.1 K/mm3 (0-0.3); Eosinophils Percent Auto 1.2 % (0-4.4); Hematocrit 42.7 % (37.0-47.0); Hemoglobin 13.9 g/dL (12.0-15.0); Immature Granulocyte Absolute 0.03 K/mm3 (0.00-0.031); Immature Granulocyte Percent A 0.5 % (0-0.5); Lymphocytes Absolute Auto 1.63 K/mm3 (0.9-3.2); Lymphocytes Percent Auto 27.2 % (18.3-44.2); Mean Corpuscular HGB Conc 32.6 g/dl (32-36); Mean Corpuscular Hemoglobin 29.4 pg (26-34); Mean Corpuscular Volume 90.5 fl (80-100); Mean Platelet Volume 11.4 fl (7.4-10.4); Monocytes Absolute Auto 0.4 K/mm3 (0.1-0.6); Monocytes Percent Auto 7.3 % (2.6-8.5); Neutrophils Absolute Auto 3.8 K/mm3 (1.3-6.7); Neutrophils Percent Auto 63.5 % (45.5-73.1); Platelet Count Result 191 k/mm3 (150-375); Red Blood Count 4.72 M/mm3 (4.2-5.4); Red Cell Distribution Width 12.8 % (11.5-14.5)
[2024-04-13 11:07] LABS: Iron 59 ug/dL (37-170)
[2024-04-13 11:11] LABS: Erythrocyte Sedimentation Rate 16 mm/hr (0-20)
[2024-04-13 11:17] LABS: Rheumatoid Factor < 12.0 IU/ML (<12)
[2024-04-13 11:18] LABS: Percent Iron Saturation 18 % (20-50)
[2024-04-13 11:25] LABS: Free T4 Free Thyroxine 1.19 ng/mL (0.78-2.19)
[2024-04-13 11:33] LABS: Vitamin D 25 Hydroxy 40.3 ng/mL
[2024-04-13 12:26] LABS: Hemoglobin A1C 6.1 % (<5.7)
[2024-04-13 13:40] LABS: Alanine Aminotransferase 24 U/L (6-35); Albumin Level 4.3 g/dL (3.5-5.1); Alkaline Phosphatase 46 U/L (38-126); Anion Gap 11 mmol/L (4-12); Aspartate Amino Transferase 27 U/L (14-36); Bilirubin,Total 0.3 mg/dL (0.2-1.3); Blood Urea Nitrogen 21 mg/dL (7-17); CRP 0.9 mg/dL (<1.0); Calcium 9.4 mg/dL (8.4-10.2); Carbon Dioxide 24 mmol/L (22-30); Chloride 102 mmol/L (98-107); Cholesterol 193 mg/dL (0-200); Estimated Glomerular Filt Rate 56; Glucose 110 mg/dL (65-110); HDL Direct 47 mg/dL; Magnesium 2.2 mg/dL (1.6-2.3); Potassium 4.2 mmol/L (3.4-5.0); Sodium 137 mmol/L (137-145); Triglycerides 149 mg/dL (<150)
[2024-04-13 13:41] LABS: LDL Cholesterol Direct 104 mg/dL
[2024-04-13 13:50] LABS: Creatinine Urine 220.6 mg/dL
[2024-04-13 13:55] LABS: MALB Creatinine Ratio 3.9 mg/g (0-30); Microalbumin Urine Random 8.6 mg/L (0-16.7)
[2024-04-13 14:32] LABS: Folic Acid 8.9 ng/mL (2.76->20)
[2024-04-18 07:58] LABS: DHEA-Sulfate 83
[2024-04-18 07:59] LABS: FSH 98.6; Insulin Level Total 31.9
[2024-04-18 08:02] LABS: Progesterone <0.5
[2024-04-18 08:03] LABS: Prolactin 6.6
[2024-04-18 08:04] LABS: Triiodothyronine T3 Free 2.7
[2024-04-18 11:25] LABS: Thyroid Peroxidase Antibodies 209
[2024-04-19 11:37] LABS: Testosterone Free 3; Testosterone Total 20
[2024-04-21 21:53] LABS: Estradiol, Ultrasensitive 8 pg/mL
== END 2024-04-13 08:56 | disposition home or self-care (01) ==
PROVIDERS: PCP Family Medicine; Visit Provider Internal Medicine Endocrinology, Diabetes & Metabolism
DX: E03.9 Hypothyroidism, unspecified (principal); D50.9 Iron deficiency anemia, unspecified; E34.9 Endocrine disorder, unspecified; R73.01 Impaired fasting glucose; E55.9 Vitamin D deficiency, unspecified; R53.83 Other fatigue; Z13.220 Encounter for screening for lipoid disorders
CPT/HCPCS: 36415; 80053; 80061; 82024; 82043; 82306; 82533; 82607; 82627; 82670; 82746; 83001; 83002; 83036; 83525; 83540; 83550; 83735; 84144; 84146; 84402; 84403; 84439; 84443; 84481; 85025; 85652; 86038; 86039; 86140; 86376; 86430

== ENCOUNTER 2024-04-21 08:52 | Outpatient (CLI) | payer MEDICARE, MEDICAID, SELFPAY ==
[2024-05-03 12:44] LABS: Dexamethasone 314 ng/dL
== END 2024-04-21 08:53 | disposition home or self-care (01) ==
LOC: ANHLAB 09:00
PROVIDERS: PCP Family Medicine; Visit Provider Internal Medicine Endocrinology, Diabetes & Metabolism
DX: E34.9 Endocrine disorder, unspecified (principal); R63.5 Abnormal weight gain; Z68.30 Body mass index [BMI] 30.0-30.9, adult
CPT/HCPCS: 36415; 80299; 82533

== ENCOUNTER 2024-04-27 09:45 | Outpatient (CLI) | payer MEDICARE, MEDICAID, SELFPAY ==
[2024-05-02 21:08] LABS: Adrenocorticotropic Hormone 13 pg/mL (6-50)
== END 2024-04-27 09:46 | disposition home or self-care (01) ==
LOC: ANHLAB 09:54
PROVIDERS: PCP Family Medicine; Visit Provider Internal Medicine Endocrinology, Diabetes & Metabolism
DX: E27.0 Other adrenocortical overactivity (principal); E27.8 Other specified disorders of adrenal gland; E34.9 Endocrine disorder, unspecified; E27.9 Disorder of adrenal gland, unspecified
CPT/HCPCS: 36415; 82024; 82627

== ENCOUNTER 2024-05-27 11:48 | Emergency (ER) | payer MEDICARE, MEDICAID, SELFPAY ==
--- NOTE | 2024-05-27 11:54 | ECG_ITS ---
Test Date: 2024-05-27 12:00:30 Measurements Intervals [place] Rate: 73 P: 24 MO: 160 QRS: 37 QRSD: 90 T: 30 QT: 369 QTc: 407 Interpretive Statements SINUS RHYTHM No previous ECG available for comparison Electronically Signed On 05-27-2024 12:15:36 CDT by Luther Bailon M.D.
[2024-05-27 11:56] VITALS: BP 140/97; PULSE 90; RESP 18; TEMP 36.5; O2SAT 100
[2024-05-27 13:15] VITALS: RESP 20; O2SAT 98
[2024-05-27 13:16] VITALS: BP 124/89; PULSE 72; RESP 16; O2SAT 98
--- NOTE | 2024-05-27 17:57 | ED_ITS ---
HPI - General Adult General Chief complaint: Recheck/Abnormal Lab/Rx Stated complaint: Multiple Medical Concerns Time Seen by Provider: 05/27/24 12:38 History of Present Illness HPI narrative: patient presents here a very anxious, she had been diagnosed with a pituitary tumor/ Nyssa's recently and has been trying to schedule an appointment with Neurosurgery at [facility] but despite calling for a month has still not been able to get an appointment. She has been very preoccupied and nervous and anxious about this to the point where she cannot fall asleep last night. Does have history of anxiety, was prescribed BuSpar and p.r.n. Xanax but has not taken them due to concern for addiction. Related Data Home Medications Medication Instructions Recorded Confirmed conj estrogen-medroxyprogesterone 1 tablet PO DAILY 04/15/22 05/11/22 0.3 mg-1.5 mg tablet (Prempro) propranolol 10 mg tablet 5 mg PO DAILY 05/11/22 05/11/22 levothyroxine 112 mcg capsule 112 mcg PO DAILY 03/08/24 (Tirosint) Allergies Allergy/AdvReac Type Severity Reaction Status Date / Time No Known Allergies Allergy Verified 05/27/24 13:17 Review of Systems Review of Systems: All systems reviewed & are unremarkable except as noted in HPI and below PMFSH Past Medical History Medical History Anxiety Crohn's disease Depression History of posttraumatic stress disorder (PTSD) Prediabetes Thyroid disease Hypothyroid Surgical History Surgical History Previous section X2 Family History Family History Father Family history of ulcerative colitis Malignant neoplasm of prostate Diabetes mellitus Acute myocardial infarction Depression Mother Family history of pancreatic cancer Pancreatitis Other Family history of chronic obstructive pulmonary disease Family history of gastrointestinal disorder Family history of primary malignant neoplasm of liver Social History Social History Smoking status: Never smoker Alcohol intake: never Alcohol use details: social Substance use: never Substance use type: does not use Living arrangements: with family Gender identity (if verbalized by the patient): Female Spiritual care concerns: No Exam Narrative: EXAMINATION OF ORGAN SYSTEMS/BODY AREAS: Constitutional: Vital signs per nursing GENERAL: Slightly anxious/tearful HEAD: Normal with no signs of head trauma. EYES: EOMI, conjunctiva normal ENT: Hearing grossly intact LUNGS: Nonlabored breathing. HEART: [Regular rate and rhythm] ABD: [Soft], [nontender to palpation] EXT: Normal range of motion SKIN: [No rashes or lesions.] NEURO: [Alert and oriented x 3. No gross focal sensory or strength deficits.] PSYCH: tearful/anxious affect Course Vital Signs Vital signs: Vital Signs Temperature 97.7 F 05/27/24 11:56 Pulse Rate 90 05/27/24 11:56 Respiratory Rate 18 05/27/24 11:56 Blood Pressure 140/97 H 05/27/24 11:56 Pulse Oximetry 100 05/27/24 11:56 Oxygen Delivery Room Air 05/27/24 11:56 Temperature 97.7 F 05/27/24 11:56 Pulse Rate 72 05/27/24 13:16 Respiratory Rate 16 05/27/24 13:16 Blood Pressure 124/89 05/27/24 13:16 Pulse Oximetry 98 05/27/24 13:16 Oxygen Delivery Room Air 05/27/24 11:56 Medical Decision Making MDM Narrative Medical decision making narrative: Patient with history of anxiety/panic attacks presenting here with symptoms consistent with anxiety. On exam patient is quite tearful and anxious. I will obtain EKG to rule out arrhythmia/ischemia Chest x-ray on my independent interpretation does not show any acute abno rmality, no pneumothorax or consolidation. EKG - 12-Lead: Performed at 1200. Interpreted by me. [Sinus rhythm]. Rate 73. [Normal] axis. AR-interval [normal]. QRS duration [normal]. QTc [normal]. [No ST segment elevation or depression]. [T-wave normal]. Impression: No EKG evidence of acute ischemia or dysrhythmia. I did call our neurosurgeon on will recommend follow-up with her partner Dr Paula yeboah who does many pituitary tumor surgeries. I discussed with the patient who cried again due to gratitude. She is now asymptomatic. On reevaluation patient is feeling better, resting comfortably, vital signs now stable. I do feel patient is stable for discharge home at this time with followup to their doctor, and return here if symptoms return or worsen. Agreeable to outpatient management. Vital Signs Vital Signs: Vital Signs Temperature 97.7 F 05/27/24 11:56 Pulse Rate 90 05/27/24 11:56 Respiratory Rate 18 05/27/24 11:56 Blood Pressure 140/97 H 05/27/24 11:56 Pulse Oximetry 100 05/27/24 11:56 Oxygen Delivery Room Air 05/27/24 11:56 Temperature 97.7 F 05/27/24 11:56 Pulse Rate 72 05/27/24 13:16 Respiratory Rate 16 05/27/24 13:16 Blood Pressure 124/89 05/27/24 13:16 Pulse Oximetry 98 05/27/24 13:16 Oxygen Delivery Room Air 05/27/24 11:56 Discharge Plan Discharge Clinical Impression: Anxiety Patient Disposition: Home, Self-Care Condition: Stable Instructions: Antibiotic Form, Anxiety (ED) Additional Instructions: Please call the office of Dr. Garcias for follow-up appointment/ consultation for your pituitary tumor. Can always return to the emergency room for any further issues. Prescriptions: No Action levothyroxine [Tirosint] 112 mcg capsule 112 mcg PO DAILY Prempro 0.3-1.5 mg tablet 1 tablet PO DAILY propranolol 10 mg Tablet 5 mg PO DAILY Follow-up/Referrals: Db,Harleen Farias MD [Primary Care Provider] - Mary Garcias MD [Physician] - 2 Days
== END 2024-05-27 13:22 | disposition home or self-care (01) ==
PROVIDERS: Emergency Provider Emergency Medicine; PCP Family Medicine
DX: F41.9 Anxiety disorder, unspecified (principal); E24.9 Cushing's syndrome, unspecified; E03.9 Hypothyroidism, unspecified; K50.90 Crohn's disease, unspecified, without complications; R73.03 Prediabetes; Z79.899 Other long term (current) drug therapy
CPT/HCPCS: 93005; 99283

== ENCOUNTER 2024-06-02 10:33 | Outpatient (CLI) | payer MEDICARE, MEDICAID, SELFPAY ==
--- NOTE | ~2024-06-02 | CT_ITS ---
EXAMINATION: CT abdomen wo/w con DATE: 06/02/2024 11:26 INDICATION: Disorder of adrenal gland TECHNIQUE: Computed tomography (CT) of the abdomen was performed without and with 100 mL Omnipaque-35 0 intravenous contrast utilizing a standard adrenal protocol. Automated exposure control and iterativ e reconstruction technique were employed. The dose-length product was 1502.51 mGy-cm. COMPARISON: 03/27/2022 FINDINGS: Lung bases are clear. Heart size is normal. No pericardial or pleural effusion. Diffuse hepatic steat osis with focal sparing along the gallbladder fossa and more focal fat at the ligamentum teres. Gallb ladder, spleen, pancreas and bilateral adrenal glands are normal. Subcentimeter cyst at the upper rody es of both kidneys. There are few scattered colonic diverticula without adjacent comparison to sugges t diverticulitis. No bowel obstruction. Tiny fat-containing umbilical hernia. No pathologically enlar ged abdominal lymphadenopathy. Severe degenerative disc disease at L5-S1. Prominent chronic bone kalpesh nd at L1. IMPRESSION: 1. Normal adrenal glands with no nodules. 2. Diffuse hepatic steatosis. Reviewed, dictated and finalized at location A.
[2024-06-02 11:02] LABS: Estimated Glomerular Filt Rate 50
== END 2024-06-02 10:34 | disposition home or self-care (01) ==
PROVIDERS: PCP Family Medicine; Visit Provider Internal Medicine Endocrinology, Diabetes & Metabolism
DX: K76.0 Fatty (change of) liver, not elsewhere classified (principal)
CPT/HCPCS: 74170; Q9967

== ENCOUNTER 2025-03-15 13:47 | Outpatient (CLI) | payer MEDICARE, MEDICAID, SELFPAY ==
--- NOTE | ~2025-03-15 | DEXA_ITS ---
Bone Density Report Name: ANNA DAVIS Age: 64 Sex: Female Ethnicity: White Date of : 1960 Indication: postmenopausal; screening for osteoporosis; height loss; Referring Provider: NICK CHAND Study: Bone densitometry was performed. Exam Date: March 15, 2025 Accession number: [id number] Bone Density: Region BMD T-score Z-score Classification AP Spine(L1-L4) 0.913 -1.2 0.5 Osteopenia Femoral Neck (Left) 0.744 -0.9 0.5 Normal Total Hip (Left) 0.915 -0.2 0.9 Normal Femoral Neck (Right) 0.827 -0.2 1.2 Normal Total Hip (Right) 0.902 -0.3 0.8 Normal Total Hip Mean 0.908 -0.3 0.9 Normal World Health Organization criteria for BMD impression classify patients as: Normal (T-score at or above -1.0), Osteopenia (T-score between -1.0 and -2.5), or Osteoporosis (T-score at or below -2.5). 10-year Fracture Risk(1): Major Osteoporotic Fracture 7.3% Hip Fracture 0.5% Reported Risk Factors: [place] (), Neck BMD=0.744, BMI=33.8 (1) FRAX(R) Version 3.08. Fracture probability calculated for an untreated patient. Fracture probability may be lower if the patient has received treatment. Previous Exams: -- Region Exam Age BMD T-score BMD Change BMD Change Date g/cm2 vs Baseline vs Previous -- AP Spine (L1-L4) 03/15/2025 64 0.913 -1.2 -3.4%* -3.4%* 12/23/2021 61 0.945 -0.9 Total Hip(Left) 03/15/2025 64 0.915 -0.2 -2.4% -2.4% 12/23/2021 61 0.937 0.0 Total Hip(Right) 03/15/2025 64 0.902 -0.3 -2.3% -2.3% 12/23/2021 61 0.923 -0.2 -- *Denotes significance at 95% confidence level, LSC for AP Spine = 0.022 g/cm2, LSC for Total Hip = 0.027 g/cm2 Clinical Information Provided by Patient: Has used the following medications: Vitamin D Patient maximum height was 66 Menopause Age: 50 No regular weight bearing exercise Onset of menses at age 14 Number of children 2 Impression: The patient has low bone mass, based on the Total Spine T-score. The patient has an estimated ten-year risk of hip fracture of 0.5% and an estimated ten-year risk of major fracture of 7.3%, based on the WHO FRAX algorithm. The BMD for the AP Spine (L1-L4) decreased, changing by -3.4% since the last DXA exam. Discussion: BONE DENSITY IS LOW AT ONE OR MORE SKELETAL SITES. This patient's lowest T-score is low at one or more skeletal sites. It meets the World Health Organization's (WHO) criteria for ?low bone mass? (T-score between -1.0 and -2.5). The patient's 10-year risk of fracture as calculated by FRAX is less than the threshold where pharmacological therapy is recommended by the National Osteoporosis Foundation (NOF). However, all treatment decisions require clinical judgment and consideration of individual patient factors, including patient preferences, comorbidities, previous drug use, risk factors not captured in the FRAX model (e.g., frailty, falls, vitamin D deficiency, increased bone turnover, interval significant decline in bone density) and possible under or overestimation of fracture risk by FRAX. The patient should follow a healthful lifestyle (good nutrition with adequate calcium and vitamin D, and appropriate weight-bearing exercise). Follow-Up: Consider repeating this study in 2 years to reassess this patient's status, or sooner if there is some new clinical indication. Reported by: JAN on 03/15/2025 2:11:00 PM. Reviewed, dictated and finalized at location A.
== END 2025-03-15 13:48 | disposition home or self-care (01) ==
LOC: MICIMG 13:49
PROVIDERS: PCP Internal Medicine Endocrinology, Diabetes & Metabolism; Visit Provider Obstetrics & Gynecology Gynecology
DX: M85.88 Other specified disorders of bone density and structure, other site (principal); Z78.0 Asymptomatic menopausal state; Z13.820 Encounter for screening for osteoporosis
CPT/HCPCS: 77080